=== PATIENT | female | born 1990 | race Caucasian/White ===

== ENCOUNTER → 2017-12-14 | Outpatient (CLI) | payer OTHER ==
--- NOTE | 2017-12-14 16:49 | US ---
EXAMINATION TYPE: US pelvic complete DATE OF EXAM: 12/14/2017 COMPARISON: 11/24/2014 CLINICAL HISTORY: R10.2 Pelvic pain. Cramping x 2 weeks, irregular cycles for the last 2 months, LMP in September, 9, para 1, miscarriage 8. TECHNIQUE: . Transabdominal sonographic images of the pelvis were acquired. Date of LMP: September 2017 EXAM MEASUREMENTS: Uterus: 7.0 x 3.5 x 4.3 cm Endometrial Stripe: 0.7 cm Right Ovary: 3.7 x 2.8 x 2.8 cm Left Ovary: 3.4 x 2.1 x 1.4 cm 1. Uterus: anteverted 2. Endometrium: appears wnl 3. Right Ovary: 2.7 x 2.2 x 1.8cm complex cystic area with internal septations 4. Left Ovary: wnl 5. Bilateral Adnexa: wnl 6. Posterior cul-de-sac: wnl IMPRESSION: Complex right ovarian cyst. Otherwise negative exam. No free fluid. Normal uterus and end ometrium.
== END | disposition home or self-care (01) ==
LOC: RADUSWWP 16:22
PROVIDERS: ATTEND Obstetrics & Gynecology
DX: N83.291 Other ovarian cyst, right side (principal)
CPT/HCPCS: 76856

== ENCOUNTER → 2017-12-14 | Outpatient (CLI) | payer OTHER | END | disposition home or self-care (01) | LOC: LABWHC1 16:45 | PROVIDERS: ATTEND Obstetrics & Gynecology | DX: N92.6 Irregular menstruation, unspecified (principal) | CPT/HCPCS: 36415; 84702 ==

== ENCOUNTER → 2018-03-30 | Outpatient (CLI) | payer OTHER | END | disposition home or self-care (01) | LOC: LABWHC1 12:50 | PROVIDERS: ATTEND Obstetrics & Gynecology | DX: Z34.90 Encounter for supervision of normal pregnancy, unspecified, unspecified trimester (principal) | CPT/HCPCS: 36415; 84702 ==

== ENCOUNTER 2018-06-26 19:07 | Emergency (ER) | payer OTHER ==
[2018-06-26 19:26] VITALS: RESP 18
[2018-06-26] MEDS ORDERED: ACETAMINOPHEN TAB 325 MG TAB PO STA (20:27)
[2018-06-26] MEDS ORDERED: SODIUM CHLORIDE 0.9% 1,000 ML IV STA (20:27)
[2018-06-26 21:31] LABS: Basophils % (A) 0 %; Eosinophils # (A) 0.1 k/uL (0-0.7); Eosinophils % (A) 1 %; HCT 43.2 % (34.0-46.0); HGB 13.8 gm/dL (11.4-16.0); Lymphocytes # (A) 0.9 k/uL (1.0-4.8); Lymphocytes % (A) 17 %; MCH 26.9 pg (25.0-35.0); Mean Platelet Volume 7.7; Monocytes # (A) 0.3 k/uL (0-1.0); Monocytes % (A) 5 %; Neutrophils % (A) 75 %; Platelet Count 225 k/uL (150-450); RBC 5.14 m/uL (3.80-5.40); RDW 13.5 % (11.5-15.5); WBC 5.3 k/uL (3.8-10.6)
[2018-06-26 21:34] LABS: Appearance,Urine Clear (Clear); Bilirubin,Urine Negative (Negative); Blood,Urine Negative (Negative); Color,Urine Yellow; Glucose,Urine (UA) Negative (Negative); Ketones,Urine Trace (Negative); Leukocyte Esterase,Urine Negative (Negative); Nitrite,Urine Negative (Negative); Protein,Urine Trace (Negative); Specific Gravity,Urine 1.037 (1.001-1.035)
[2018-06-26 21:42] LABS: ALT 26 U/L (9-52); AST 24 U/L (14-36); Albumin 4.5 g/dL (3.5-5.0); Alkaline Phosphatase 50 U/L (38-126); Amylase 48 U/L (30-110); Anion Gap 11 mmol/L; Blood Urea Nitrogen 11 mg/dL (7-17); Calcium 9.7 mg/dL (8.4-10.2); Carbon Dioxide 21 mmol/L (22-30); Chloride 104 mmol/L (98-107); Glucose 76 mg/dL (74-99); Lipase 88 U/L (23-300); Potassium 3.8 mmol/L (3.5-5.1); Sodium 136 mmol/L (137-145); Total Bilirubin 0.4 mg/dL (0.2-1.3); Total Protein 7.1 g/dL (6.3-8.2)
--- NOTE | 2018-06-26 21:54 | US ---
EXAMINATION TYPE: Transabdominal DATE OF EXAM: 06/26/2018 9:38 PM COMPARISON: NONE CLINICAL HISTORY: Pain. Pain EXAM PERFORMED: Transvaginal (TV) and Transabdominal (TA) EXAM MEASUREMENTS: GESTATIONAL AGE / DATING Physician Established: Not yet established Dates by LMP: (8 weeks/3 days) EDC: 02/02/2019 Dates by First Scan: No previous this is first scan Dates by Current Scan for: (7 weeks/6 days) EDC: 02/06/2019 MATERNAL ANATOMY Uterus: 10.3 x 4.8 x 3.9cm Right Ovary: 3.9 x 2.1 x 1.4 cm Left Ovary: 3.9 x 2.1 x 2.4 cm Post CDS / Adnexa: wnl Presence of free fluid: no Presence of corpus luteal cyst: yes left ovary 1.4 x 1.2 x .9cm Presence of subchorionic bleed: no GESTATION / SURVEY CRL: 1.52cm ( 7 weeks/6 days) Yolk Sac (normal less than 6mm): 3mm Heart Rate: 172 bpm Rhythm: Normal IUP: Viable IUP Beta HcG (if available): Not available at this time IMPRESSION: Single viable intrauterine corresponding sonographically to 7 weeks 6 days gestation with E DC 02/06/2019.
--- NOTE | 2018-06-26 21:57 | ED ---
General Adult HPI - General Chief complaint: Abdominal Pain Stated complaint: early /abdominal pain Time Seen by Provider: 06/26/18 20:08 Source: patient, RN notes reviewed Mode of arrival: ambulatory - History of Present Illness Initial comments: 27-year-old female presents to the emergency department for a chief complaint of abdominal pain. Patient states that a few days ago she started to have some cramping pelvic pain. Sates that yesterday and today she started to have bilateral sharp cramping pain pain that radiates into the vaginal area. States it is worse on the right side. States it comes and goes. Patient states last menstrual period was 04/28/2018 which is about 8 weeks. Patient denies any vaginal bleeding. Patient denies any fevers or chills. Denies any dysuria. She does admit to associated nausea but denies vomiting. Patient has no other complaints at this time including shortness of breath, chest pain, vomiting, headache, or visual changes. - Related Data Home Medications Medication Instructions Recorded Confirmed No Known Home Medications 06/26/18 06/26/18 Allergies Allergy/AdvReac Type Severity Reaction Status Date / Time No Known Allergies Allergy Verified 06/26/18 20:12 Review of Systems ROS Statement: Those systems with pertinent positive or pertinent negative responses have been documented in the HPI. ROS Other: All systems not noted in ROS Statement are negative. Past Medical History Past Medical History: No Reported History History of Any Multi-Drug Resistant Organisms: None Reported Past Surgical History: No Surgical Hx Reported Past Anesthesia/Blood Transfusion Reactions: No Reported Reaction Past Psychological History: No Psychological Hx Reported Smoking Status: Current some day smoker Past Alcohol Use History: None Reported Past Drug Use History: None Reported General Exam General appearance: alert, in no apparent distress Head exam: Present: atraumatic, normocephalic, normal inspection Eye exam: Present: normal appearance, PERRL, EOMI. Absent: scleral icterus, conjunctival injection, periorbital swelling ENT exam: Present: normal exam, mucous membranes moist Neck exam: Present: normal inspection, full ROM. Absent: tenderness, meningismus, lymphadenopathy Respiratory exam: Present: normal lung sounds bilaterally. Absent: respiratory distress, wheezes, rales, rhonchi, stridor Cardiovascular Exam: Present: regular rate, normal rhythm, normal heart sounds. Absent: systolic murmur, diastolic murmur, rubs, gallop, clicks GI/Abdominal exam: Present: soft. Absent: distended, tenderness (RLQ tenderness), guarding, rebound, rigid External exam: Present: normal external exam Speculum exam: Present: normal speculum exam. Absent: erythema, vaginal discharge, cervical discharge, vaginal bleeding, foreign body By manual exam: Present: adnexal tenderness (R adnexal tenderness). Absent: normal by manual exam, cervical motion tenderness, adnexal mass, uterine enlargement, uterine tenderness Neurological exam: Present: alert, oriented X3, CN II-XII intact Psychiatric exam: Present: normal affect, normal mood Course Vital Signs 06/26/18 19:22 Temperature 97.9 F Pulse Rate 81 Respiratory 18 Rate Blood Pressure 105/64 O2 Sat by Pulse 99 Oximetry Medical Decision Making - Medical Decision Making 27-year-old female since to the emergency department for a chief complaint of abdominal pain. States she started have pelvic cramping a few weeks ago and it did become right-sided. Patient states that it is worse on the right side. Denies fevers or chills. States her last menstrual period was about 8 weeks ago. On exam patient is tenderness noted in the right and left lower quadrant. Pelvic exam did reveal right adnexal tenderness. CBC CMP is unremarkable. White blood cell count is 5. Ultrasound shows a single viable intrauterine corresponding to 7 weeks 6 days. Patient was given Tylenol for her pain. On reevaluation patient is feeling much better. She is comfortably sitting up. Tenderness has decreased significantly. Patient feeling ready to go home. At this time I believe pain was likely secondary to cramping however no vaginal bleeding. Patient will follow up with [facility] in one to 2 days. She will return here if she has any worsening symptoms or fevers. - Lab Data Result diagrams: 06/26/18 21:00 06/26/18 21:00 Lab Results 06/26/18 06/26/18 06/26/18 Range/Units 18:40 18:41 18:41 WBC (3.8-10.6) k/uL RBC (3.80-5.40) m/uL Hgb (11.4-16.0) gm/dL Hct (34.0-46.0) % MCV (80.0-100.0) fL MCH (25.0-35.0) pg MCHC (31.0-37.0) g/dL RDW (11.5-15.5) % Plt Count (150-450) k/uL Neutrophils % % Lymphocytes % % Monocytes % % Eosinophils % % Basophils % % Neutrophils # (1.3-7.7) k/uL Lymphocytes # (1.0-4.8) k/uL Monocytes # (0-1.0) k/uL Eosinophils # (0-0.7) k/uL Basophils # (0-0.2) k/uL Sodium (137-145) mmol/L Potassium (3.5-5.1) mmol/L Chloride (98-107) mmol/L Carbon Dioxide (22-30) mmol/L Anion Gap mmol/L BUN (7-17) mg/dL Creatinine (0.52-1.04) mg/dL Est GFR (CKD-EPI)AfAm (>60 ml/min/1.73 sqM) Est GFR (CKD-EPI)NonAf (>60 ml/min/1.73 sqM) Glucose (74-99) mg/dL Calcium (8.4-10.2) mg/dL Total Bilirubin (0.2-1.3) mg/dL AST (14-36) U/L ALT (9-52) U/L Alkaline Phosphatase (38-126) U/L Total Protein (6.3-8.2) g/dL Albumin (3.5-5.0) g/dL Amylase (30-110) U/L Lipase (23-300) U/L Urine Color Yellow Urine Appearance Clear (Clear) Urine pH 6.0 (5.0-8.0) Ur Specific Compton 1.037 H (1.001-1.035) Urine Protein Trace H (Negative) Urine Glucose (UA) Negative (Negative) Urine Ketones Trace H (Negative) Urine Blood Negative (Negative) Urine Nitrite Negative (Negative) Urine Bilirubin Negative (Negative) Urine Urobilinogen 2.0 (<2.0) mg/dL Ur Leukocyte Esterase Negative (Negative) Urine HCG, Qual Detected (Not Detectd) Trichomonas Ag (Rapid) Negative (Negative) Blood Type Blood Type Recheck 06/26/18 06/26/18 06/26/18 Range/Units 21:00 21:00 21:00 WBC 5.3 (3.8-10.6) k/uL RBC 5.14 (3.80-5.40) m/uL Hgb 13.8 (11.4-16.0) gm/dL Hct 43.2 (34.0-46.0) % MCV 84.0 (80.0-100.0) fL MCH 26.9 (25.0-35.0) pg MCHC 32.0 (31.0-37.0) g/dL RDW 13.5 (11.5-15.5) % Plt Count 225 (150-450) k/uL Neutrophils % 75 % Lymphocytes % 17 % Monocytes % 5 % Eosinophils % 1 % Basophils % 0 % Neutrophils # 4.0 (1.3-7.7) k/uL Lymphocytes # 0.9 L (1.0-4.8) k/uL Monocytes # 0.3 (0-1.0) k/uL Eosinophils # 0.1 (0-0.7) k/uL Basophils # 0.0 (0-0.2) k/uL Sodium 136 L (137-145) mmol/L Potassium 3.8 (3.5-5.1) mmol/L Chloride 104 (98-107) mmol/L Carbon Dioxide 21 L (22-30) mmol/L Anion Gap 11 mmol/L BUN 11 (7-17) mg/dL Creatinine 0.41 L (0.52-1.04) mg/dL Est GFR (CKD-EPI)AfAm >90 (>60 ml/min/1.73 sqM) Est GFR (CKD-EPI)NonAf >90 (>60 ml/min/1.73 sqM) Glucose 76 (74-99) mg/dL Calcium 9.7 (8.4-10.2) mg/dL Total Bilirubin 0.4 (0.2-1.3) mg/dL AST 24 (14-36) U/L ALT 26 (9-52) U/L Alkaline Phosphatase 50 (38-126) U/L Total Protein 7.1 (6.3-8.2) g/dL Albumin 4.5 (3.5-5.0) g/dL Amylase 48 (30-110) U/L Lipase 88 (23-300) U/L Urine Color Urine Appearance (Clear) Urine pH (5.0-8.0) Ur Specific Compton (1.001-1.035) Urine Protein (Negative) Urine Glucose (UA) (Negative) Urine Ketones (Negative) Urine Blood (Negative) Urine Nitrite (Negative) Urine Bilirubin (Negative) Urine Urobilinogen (<2.0) mg/dL Ur Leukocyte Esterase (Negative) Urine HCG, Qual (Not Detectd) Trichomonas Ag (Rapid) (Negative) Blood Type B Positive Blood Type Recheck No Disposition Clinical Impression: Intrauterine Disposition: HOME SELF-CARE Condition: Good Instructions (If sedation given, give patient instructions): Abdominal Pain in (ED) Additional Instructions: Please take Tylenol for pain. If symptoms are worsening or you develop fevers return immediately to the emergency department. Otherwise follow-up with your [facility] Dr. Hodge in one to 2 days. Is patient prescribed a controlled substance at d/c from ED?: No Referrals: Tara Hodge DO [Doctor of Osteopathic Medicine] - 1-2 days Porsha Gifford MD [STAFF PHYSICIAN] - 1-2 days Time of Disposition: 22:42
[2018-06-26 23:27] VITALS: BP 102/78; PULSE 97; TEMP 98.1
[2018-06-28 13:27] LABS: C. trachomatis,PCR Negative (Neg,Equiv); Chlamydia trachomatis Source Vagina
[2018-06-28 14:18] LABS: N. gonorrhoeae,PCR Negative (Neg,Equiv); Neisseria Source Vagina
== END 2018-06-26 22:51 | disposition home or self-care (01) ==
LOC: EC 19:07
DX: O26.891 Other specified pregnancy related conditions, first trimester (principal); R10.31 Right lower quadrant pain; O99.331 Smoking (tobacco) complicating pregnancy, first trimester; F17.200 Nicotine dependence, unspecified, uncomplicated; Z3A.01 Less than 8 weeks gestation of pregnancy
CPT/HCPCS: 36415; 76801; 76817; 80053; 81003; 81025; 82150; 83690; 84702; 85025; 86900; 86901; 87491; 87591; 87808; 96360; 99284

== ENCOUNTER → 2018-07-19 | Outpatient (CLI) | payer OTHER ==
--- NOTE | 2018-07-19 14:34 | US ---
EXAMINATION TYPE: Transabdominal DATE OF EXAM: 07/19/2018 1:30 PM COMPARISON: 06/26/2018 CLINICAL HISTORY: CONFIRM DATES. EXAM PERFORMED: Transabdominal (TA) EXAM MEASUREMENTS: GESTATIONAL AGE / DATING Physician Established: Not yet established Dates by LMP: (7 weeks/2 days) EDC: 03/05/18 Dates by First Scan: (11 weeks/1 days) EDC: 02/06/19 Dates by Current Scan for: (11 weeks/1 days) EDC: 02/06/2019 MATERNAL ANATOMY Uterus: 13 x 6.4 x 7.8cm Right Ovary: 2.8 x 2.4 x 2.5 cm Left Ovary: 3.1 x 2.0 x 2.0 cm Post CDS / Adnexa: wnl Presence of free fluid: no Presence of corpus luteal cyst: no Presence of subchorionic bleed:no GESTATION / SURVEY CRL: 4.4 (11 weeks/1 days) Yolk Sac (normal less than 6mm): 4mm Heart Rate: 171 bpm Rhythm: Normal IUP: Live IUP Date of LMP: 05/29/18 Beta HcG (if available): Not available at this time IMPRESSION: Single live intrauterine with a sonographic age of 11 weeks and 1 day, concordant with the initial ultrasound of 06/26/2018 provided dates. This is discordant with the dates by last menstrual p eriod.
== END ==
LOC: RADUSWWP 13:05
PROVIDERS: ATTEND Obstetrics & Gynecology
DX: Z36.89 Encounter for other specified antenatal screening (principal); Z3A.11 11 weeks gestation of pregnancy
CPT/HCPCS: 76801

== ENCOUNTER 2018-11-19 21:53 | Outpatient (CLI) | payer OTHER ==
[2018-11-19 22:41] VITALS: BP 137/67; PULSE 85; RESP 16; TEMP 96.4
--- NOTE | 2018-11-22 10:41 | P.MSEPDOC ---
Presenting Problems - Arrival Data Date of Arrival on Unit: 11/19/18 Time of Arrival on Unit: 21:53 Mode of Transport: Wheelchair - Complaint OB-Reason for Admission/Chief Complaint: Rule Out PROM Medical History - Information : 10 Para: 1 Term: 1 : 0 Abortions: Spontaneous or Elective: 8 Number of Living Children: 1 - Gestational Age Gestational Age by SOSA (wks/days): 29 Weeks and 2 Days Review of Systems - Review of Systems Constitutional: No problems Breast: No problems ENT: No problems Cardiovascular: No problems Respiratory: No problems Gastrointestinal: No problems Genitourinary: No problems Musculoskeletal: No problems Neurological: No problems Skin: No problems Vital Signs - Temperature Temperature: 96.4 F Temperature Source: Temporal Artery Scan - Pulse Right Pulse Rate: 85 Pulse Assessment Method: Automatic Cuff - Respirations Respiratory Rate: 16 Oxygen Delivery Method: Room Air O2 Sat by Pulse Oximetry: 99 - Blood Pressure Right Arm Blood Pressure: 137/67 Blood Pressure Mean: 90 Blood Pressure Source: Automatic Cuff Medical Screen Scoring (Pre) - Cervical Exam Dilation: Exam Deferred Effacement: Exam Deferred Membranes: Intact - Uterine Contractions Frequency: N/A Duration: N/A Intensity: N/A - Maternal Vital Signs Maternal Temperature: N/A Maternal Blood Pressure: N/A Signs of Preeclampsia: N/A Maternal Respirations: N/A - Maternal Trauma Maternal Trauma: N/A - Assessment - Baby A Baseline FHR: 145 Heart Rate - NICHD Category: Category I (Normal) = 0 NST: Reactive Position: N/A Station: N/A - Total Score - Baby A Total Score - Baby A: 0 - Total Score - Baby B Total Score - Baby B: 0 - Total Score - Baby C Total Score - Baby C: 0 - Level of Risk - Baby A Level of Risk - Baby A: Low (0-5) - Level of Risk - Baby B Level of Risk - Baby B: Low (0-5) - Level of Risk - Baby C Level of Risk - Baby C: Low (0-5) Physician Notification (Pre) - Physician Notified Physician Notified Date: 11/19/18 Physician Notified Time: 22:23 Physician/Practitioner Notifed:: Dr. Doss Spoke With: Dr. Doss New Order Received: Yes - Notification Comment Comment: Dr. Doss called and given report on pt. Pt c/o. VS wnl. Reactive NST. Negative amnisure. Orders recieved to d/c pt to home. Disposition - Disposition OB Disposition: Discharge to home Discharge Date: 11/19/18 Discharge Time: 22:30 I agree with the RN Medical Screening Exam: Yes Risk & Benefit of care provided described in d/c instruction: Yes Diagnosis: FALSE LABOR BEFORE 37 COMPLETED WEEKS OF GEST, THIRD TRI
== END 2018-11-19 22:30 | disposition home or self-care (01) ==
LOC: FBPOP 21:53
PROVIDERS: ATTEND Obstetrics & Gynecology
DX: O47.03 False labor before 37 completed weeks of gestation, third trimester (principal); Z3A.29 29 weeks gestation of pregnancy
CPT/HCPCS: 59025; G0463; 99213

== ENCOUNTER 2018-12-19 21:25 | Observation (INO) | payer OTHER ==
[2018-12-19 22:12] LABS: Amorphous Sediment,Urine Rare /hpf; Appearance,Urine Turbid (Clear); Bilirubin,Urine Negative (Negative); Blood,Urine Negative (Negative); Color,Urine Yellow; Glucose,Urine (UA) Negative (Negative); Ketones,Urine Negative (Negative); Leukocyte Esterase,Urine Negative (Negative); Mucus,Urine Rare /hpf; Nitrite,Urine Negative (Negative); PH, Urine 7.5 (5.0-8.0); Protein,Urine Negative (Negative); Specific Gravity,Urine 1.017 (1.001-1.035); Squamous Epithelial Cell,Urine 1 /hpf (0-4); WBC,Urine 4 /hpf (0-5)
[2018-12-19] MEDS ORDERED: LACTATED RINGERS 1,000 ML IV SCH (23:00)
[2018-12-19] MEDS: BETAMET ACET-BETAMETH SOD PHOS 6 MG/ML VIAL IM SCH (23:43)
[2018-12-19 23:49] VITALS: BMI 30.7
[2018-12-19] MEDS: LACTATED RINGERS 1,000 ML IV SCH (23:51)
[2018-12-20 08:03] VITALS: RESP 18; TEMP 96.7
[2018-12-20] MEDS: LACTATED RINGERS 1,000 ML IV SCH ×2 (09:30→21:14)
--- NOTE | 2018-12-20 11:36 | P.HPOB ---
History of Present Illness H&P Date: 12/20/18 Chief Complaint: pressure 28 year old presented to [facility] at 33 weeks and 5 days complaining of pressure. heart tones are 1:30 with moderate variability and reactive. She is not hudson on the monitor. fibronectin was sent and positive and her cervix is 1-2 cm dilated. She was admitted by Dr. Doss for observation and Celestone injections. She received her first dose of Celestone at 2300. Review of Systems All systems: negative Constitutional: Denies chills, Denies fever Eyes: denies blurred vision, denies pain Ears, nose, mouth and throat: Denies headache, Denies sore throat Cardiovascular: Denies chest pain, Denies shortness of breath Respiratory: Denies cough Gastrointestinal: Denies abdominal pain, Denies diarrhea, Denies nausea, Denies vomiting Genitourinary: Denies dysuria, Denies hematuria Musculoskeletal: Denies myalgias Integumentary: Denies pruritus, Denies rash Neurological: Denies numbness, Denies weakness Psychiatric: Denies anxiety, Denies depression Endocrine: Denies fatigue, Denies weight change Past Medical History Past Medical History: No Reported History Additional Past Medical History / Comment(s): Obstetric history: She has had one termination, 6 spontaneous abortions, and one vaginal delivery. This is her ninth . History of Any Multi-Drug Resistant Organisms: None Reported Past Surgical History: No Surgical Hx Reported Past Anesthesia/Blood Transfusion Reactions: No Reported Reaction Past Psychological History: No Psychological Hx Reported Smoking Status: Former smoker Past Alcohol Use History: None Reported Past Drug Use History: None Reported - Past Family History Mother Family Medical History: No Reported History Medications and Allergies Home Medications Medication Instructions Recorded Confirmed Type Pnv No.95/Ferrous Fum/Folic AC 1 tab PO DAILY 11/19/18 12/19/18 History [ Multivitamin Tablet] Allergies Allergy/AdvReac Type Severity Reaction Status Date / Time No Known Allergies Allergy Verified 12/19/18 21:31 Exam Osteopathic Statement: *. No significant issues noted on an osteopathic structural exam other than those noted in the History and Physical/Consult. Vital Signs Temp Pulse Resp BP Pulse Ox 12/20/18 07:15 96.7 F L 76 18 129/62 99 12/20/18 04:00 97.9 F 71 16 97/50 12/19/18 23:44 97.9 F 63 16 112/54 12/19/18 21:52 97.3 F L 80 16 138/62 99 Intake and Output 12/19/18 12/20/18 12/20/18 22:59 06:59 14:59 Other: # Voids 1 Weight 76.204 kg Heart: Regular rate and rhythm Lungs: Clear to auscultation bilaterally Abdomen: Soft, nontender Extremities: Negative Homans sign Results Abnormal Lab Results - Last 24 Hours (Table) 12/19/18 Range/Units 21:57 Urine Appearance Turbid H (Clear) Amorphous Sediment Rare H (None) /hpf Urine Mucus Rare H (None) /hpf Assessment and Plan (1) Positive fibronectin at 22 weeks to 34 weeks gestation Current Visit: Yes Status: Acute Code(s): O09.899 - SUPERVISION OF OTHER HIGH RISK PREGNANCIES, UNSP TRIMESTER; R87.89 - OTH ABNORMAL FINDINGS IN SPECMN FROM FEMALE GENITAL ORGANS SNOMED Code(s): 955691583 Plan: 1. Continue to monitor 2. Her second dose of Celestone OB at 11 PM tonight 3. She will be discharged home tomorrow morning if there is no cervical change and she does not start to contract.
[2018-12-20] MEDS ORDERED: ACETAMINOPHEN TAB 325 MG TAB PO PRN (15:48)
[2018-12-20 16:06] VITALS: BP 118/65; PULSE 74
[2018-12-20] MEDS: BETAMET ACET-BETAMETH SOD PHOS 6 MG/ML VIAL IM SCH (23:19)
--- NOTE | 2018-12-21 06:27 | P.DS ---
Providers Date of admission: 12/19/18 23:19 Expected date of discharge: 12/21/18 Attending physician: Tara Hodge Primary care physician: Stated None - Discharge Diagnosis(es) (1) Positive fibronectin at 22 weeks to 34 weeks gestation Current Visit: Yes Status: Acute Hospital Course: Patient presented at 33 weeks and 5 days with positive fibronectin dilated 1-2 cm, 70% effaced, and -2 station. She is not hudson initially. She was admitted for observation and did have several times earlier she have a retinal contractions urine there. Her pain never got above of 4 on the pain scale. Her cervix did not make any change. She did receive 2 doses of Celestone. She'll be discharged home this morning to follow-up with me in one week. She is on pelvic rest and limited work hours. Plan - Discharge Summary New Discharge Prescriptions: No Action Pnv No.95/Ferrous Fum/Folic AC [ Multivitamin Tablet] 1 tab PO DAILY Discharge Medication List Pnv No.95/Ferrous Fum/Folic AC [ Multivitamin Tablet] 1 tab PO DAILY 11/19/18 [History] Follow up Appointment(s)/Referral(s): Tara Hodge DO [Doctor of Osteopathic Medicine] - 12/28/18 Discharge Disposition: HOME SELF-CARE
== END 2018-12-21 07:20 | disposition home or self-care (01) ==
LOC: FBPOP 21:25 → UNDOADMOB 23:19 → 4FBP 23:19 → UNDODISOB 12-21 07:20
PROVIDERS: ADMIT Obstetrics & Gynecology; ATTEND Obstetrics & Gynecology
DX: O26.23 Pregnancy care for patient with recurrent pregnancy loss, third trimester (principal); O26.893 Other specified pregnancy related conditions, third trimester; Z87.891 Personal history of nicotine dependence; Z3A.33 33 weeks gestation of pregnancy
CPT/HCPCS: 59025; 81001; 82731; 96360; 96361; 96365; 96372; 99213; 99214

== ENCOUNTER 2019-01-19 16:28 | Inpatient (IN) | payer OTHER ==
[2019-01-19 17:07] LABS: Appearance,Urine Clear (Clear); Bilirubin,Urine Negative (Negative); Blood,Urine Negative (Negative); Color,Urine Yellow; Glucose,Urine (UA) Negative (Negative); Ketones,Urine Negative (Negative); Leukocyte Esterase,Urine Negative (Negative); Nitrite,Urine Negative (Negative); Protein,Urine Negative (Negative); Specific Gravity,Urine 1.014 (1.001-1.035); Urobilinogen,Urine <2.0 mg/dL (<2.0)
[2019-01-19] MEDS ORDERED: METHYLERGONOVINE 0.2 MG/ML 1 ML AMP IM PRN (19:11)
[2019-01-19] MEDS ORDERED: OXYTOCIN 10 UNIT/ML 1 ML VIAL IM PRN (19:11)
[2019-01-19] MEDS ORDERED: CARBOPROST TROMETHAMINE 250 MCG/ML 1 ML AMP IM PRN (19:11)
[2019-01-19] MEDS ORDERED: LIDOCAINE 0.5% (PF) 5 MG/ML (50 ML SDV) SQ PRN (19:11)
[2019-01-19] MEDS ORDERED: AMPICILLIN 2,000 MG in SODIUM CHLORIDE 0.9% 100 ML IVPB STA (19:11)
[2019-01-19] MEDS ORDERED: TERBUTALINE 1 MG/ML VIAL SQ PRN (19:11)
[2019-01-19] MEDS ORDERED: OXYTOCIN 30 UNITS/500 ML NS 30 UNIT in SALINE 1 500ML.BAG IV SCH (19:15)
[2019-01-19] MEDS: LACTATED RINGERS 1,000 ML IV SCH (19:20)
[2019-01-19 20:20] VITALS: BMI 33.3
[2019-01-19 21:00] LABS: Basophils # (A) 0.1 k/uL (0-0.2); Basophils % (A) 1 %; Eosinophils # (A) 0.1 k/uL (0-0.7); Eosinophils % (A) 1 %; HGB 11.5 gm/dL (11.4-16.0); Lymphocytes # (A) 2.3 k/uL (1.0-4.8); Lymphocytes % (A) 24 %; MCH 27.3 pg (25.0-35.0); MCHC 33.6 g/dL (31.0-37.0); MCV 81.1 fL (80.0-100.0); Mean Platelet Volume 8.4; Monocytes # (A) 0.4 k/uL (0-1.0); Monocytes % (A) 4 %; Neutrophils # (A) 6.6 k/uL (1.3-7.7); Neutrophils % (A) 69 %; Platelet Count 194 k/uL (150-450); RDW 13.3 % (11.5-15.5); WBC 9.5 k/uL (3.8-10.6)
[2019-01-20] MEDS: AMPICILLIN 1,000 MG in SODIUM CHLORIDE 0.9% 50 ML IVPB SCH ×2 (00:21→20:31)
[2019-01-20] MEDS ORDERED: BENZOCAINE/MENTHOL SPRAY 1 GM/SPRAY AEROSOL TOPICAL PRN (04:28)
[2019-01-20] MEDS ORDERED: ZOLPIDEM 5 MG TAB PO PRN (04:28)
[2019-01-20] MEDS ORDERED: SIMETHICONE 80 MG CHEWABLE PO PRN (04:28)
[2019-01-20] MEDS ORDERED: HYDROCORTISONE 2.5% RECTAL CREAM 30 GM TUBE RECTAL PRN (04:28)
[2019-01-20] MEDS ORDERED: MEASLES-MUMPS-RUBELLA VACC/PF 12,500 UNIT/0.5 ML VIAL SQ ONE (04:28)
[2019-01-20] MEDS ORDERED: WITCH HAZEL 1 EACH MED..PAD TOPICAL PRN (04:28)
[2019-01-20] MEDS ORDERED: diphenhydrAMINE 25 MG CAP PO PRN (04:28)
[2019-01-20] MEDS ORDERED: diphenhydrAMINE 50 MG/ML 1 ML VIAL IVP PRN ×2 (04:28)
[2019-01-20] MEDS ORDERED: LANOLIN CREAM 5 GM TUBE TOPICAL PRN (04:28)
[2019-01-20] MEDS ORDERED: HYDROcodone/APAP 5-325MG 1 EACH TAB PO PRN (04:28)
[2019-01-20] MEDS ORDERED: diphenhydrAMINE 50 MG CAP PO PRN (04:28)
[2019-01-20] MEDS ORDERED: OXYTOCIN 20 UNITS/1000 ML NS 1,000 ML IV SCH (04:30)
--- NOTE | 2019-01-20 04:31 | P.HPOB ---
History of Present Illness H&P Date: 01/20/19 Chief Complaint: Intrauterine at term: Active labor Sue is a 28 she'll G 10 P1 at 38 weeks gestation who ryes in active labor. She is making cervical change. She is admitted for same. Her course she relates as unremarkable and she is feeling well at this time. She is having contractions approximately 4-5 minutes for preoperative record is not in the chart but she denies any issues with her medical history either. She reports the contractions began earlier in the afternoon and they were stronger bring labor and delivery. Initially she was 3 to half centimeters and then approximately 2 hours later she was 5 cm. She plans to use epidural for analgesia. No other issues at this time. Category 1 tracing is noted. Artificial rupture membranes was performed clear fluid noted. At that time she was dilated to 6 cm 70% effaced and -2 station Past Medical History Past Medical History: No Reported History Additional Past Medical History / Comment(s): Obstetric history: She has had one termination, 6 spontaneous abortions, and one vaginal delivery. This is her ninth . History of Any Multi-Drug Resistant Organisms: None Reported Past Surgical History: No Surgical Hx Reported Past Anesthesia/Blood Transfusion Reactions: No Reported Reaction Past Psychological History: No Psychological Hx Reported Smoking Status: Never smoker Past Alcohol Use History: None Reported Past Drug Use History: None Reported - Past Family History Mother Family Medical History: No Reported History Medications and Allergies Home Medications Medication Instructions Recorded Confirmed Type Pnv No.95/Ferrous Fum/Folic AC 1 tab PO DAILY 11/19/18 12/19/18 History [ Multivitamin Tablet] Allergies Allergy/AdvReac Type Severity Reaction Status Date / Time No Known Allergies Allergy Verified 12/19/18 21:31 Exam Osteopathic Statement: *. No significant issues noted on an osteopathic structural exam other than those noted in the History and Physical/Consult. Vital Signs Temp Pulse Resp BP Pulse Ox 01/19/19 19:10 97.3 F L 80 18 120/63 98 01/19/19 17:18 97.0 F L 76 18 103/62 97 Intake and Output 01/19/19 01/19/19 01/20/19 14:59 22:59 06:59 Other: # Voids 1 Weight 82.554 kg - OBG Physical Exam Breast: both: normal (no masses) Abdomen: bowel sounds normal, no diffuse tenderness, no bruit present, no guarding noted, no hepatomegaly, no splenomegaly, no mass Vulva: both: normal Vagina: normal moisture, no discharge Cervix: no lesion, no discharge Uterus: normal size, normal contour Adnexa: both: normal Anus/Rectum: normal perianal skin, no rectal mass, no hemorrhoids, heme negative Results Result Diagrams: 01/19/19 20:44
--- NOTE | 2019-01-20 04:34 | P.PROBDLV ---
Vaginal Delivery Note - . Vaginal Delivery Note: Sue progressed to complete and pushing with spontaneous vaginal delivery of a viable female over an intact perineum. Following delivery of the head from left occiput anterior position a nuchal cord 1 was noted and and with my fingers looped under the umbilical cord due to her continued to push we are able to remove the umbilical cord around the shoulders and deliver the shoulders with gentle downward upper traction and then the baby was delivered through the umbilical cord. Mouth and nares were then bulb suctioned and baby was placed on mother's abdomen where the umbilical cord was then clamped and cut in usual fashion following 30 seconds of station. Nursery personnel was present and assumed care. Placenta was then delivered intact and Pitocin was added to the IV. A right periurethral laceration was noted and was repaired with 3-0 Vicryl following 1% Xylocaine for analgesia. scores were 9 and 9 at one and 5 minutes respectively and the weight was 6 lbs. 4 oz. Both mother and baby are stable following delivery.
[2019-01-20] MEDS: LACTATED RINGERS 1,000 ML IV SCH (05:12)
[2019-01-20] MEDS: IBUPROFEN 600 MG TAB PO PRN ×2 (06:03→15:42)
[2019-01-20] MEDS: SENNOSIDES-DOCUSATE SODIUM 1 EACH TAB PO SCH ×2 (08:04→20:03)
[2019-01-20] MEDS ORDERED: ROPIVACAINE 100 MG, fentaNYL (PF) 200 MCG in SODIUM CHLORIDE 0.9% 76 ML EPIDURAL ONE (15:50)
[2019-01-20] MEDS: ACETAMINOPHEN TAB 325 MG TAB PO PRN (20:03)
[2019-01-21 00:10] VITALS: RESP 16
[2019-01-21] MEDS: SENNOSIDES-DOCUSATE SODIUM 1 EACH TAB PO SCH (07:21)
[2019-01-21] MEDS: IBUPROFEN 600 MG TAB PO PRN (07:21)
[2019-01-21 08:11] VITALS: BP 101/61; PULSE 56; TEMP 98.3
--- NOTE | 2019-01-21 09:06 | P.DS ---
Providers Date of admission: 01/19/19 19:08 Expected date of discharge: 01/21/19 Attending physician: Tara Hodge Primary care physician: Stated None - Discharge Diagnosis(es) (1) Vaginal delivery Current Visit: No Status: Acute Hospital Course: Patient presented in active labor. She underwent a normal vaginal delivery. Her course was uncomplicated. She'll be discharged home day #1 in stable condition to follow-up with me in 6 weeks. Plan - Discharge Summary Discharge Rx Participant: No New Discharge Prescriptions: No Action Pnv No.95/Ferrous Fum/Folic AC [ Multivitamin Tablet] 1 tab PO DAILY Discharge Medication List Pnv No.95/Ferrous Fum/Folic AC [ Multivitamin Tablet] 1 tab PO DAILY 11/19/18 [History]
[2019-01-21] MEDS: ACETAMINOPHEN TAB 325 MG TAB PO PRN (10:22)
== END 2019-01-21 10:50 | disposition home or self-care (01) | DRG 807 ==
LOC: FBPOP 16:28 → 4FBP 19:08
PROVIDERS: ADMIT Obstetrics & Gynecology; ATTEND Obstetrics & Gynecology
PROC: 10E0XZZ Delivery of Products of Conception, External Approach (ICD-10-PCS; principal; 2019-01-19)
PROC: 0UQMXZZ Repair Vulva, External Approach (ICD-10-PCS; 2019-01-19)
PROC: 00HU33Z Insertion of Infusion Device into Spinal Canal, Percutaneous Approach (ICD-10-PCS; 2019-01-19)
PROC: 3E0R3BZ Introduction of Anesthetic Agent into Spinal Canal, Percutaneous Approach (ICD-10-PCS; 2019-01-19)
PROC: 3E0134Z Introduction of Serum, Toxoid and Vaccine into Subcutaneous Tissue, Percutaneous Approach (ICD-10-PCS; 2019-01-20)
DX: O69.81X0 Labor and delivery complicated by cord around neck, without compression, not applicable or unspecified (principal); Z37.0 Single live birth; O71.82 Other specified trauma to perineum and vulva; Z3A.38 38 weeks gestation of pregnancy; Z79.899 Other long term (current) drug therapy; Z23 Encounter for immunization
CPT/HCPCS: 59025; 81003; 85025; 86850; 86900; 86901; 99203; 99213

== ENCOUNTER → 2019-12-09 | Outpatient (CLI) | payer OTHER | END | disposition home or self-care (01) | LOC: LABWHC1 10:47 | PROVIDERS: ATTEND Obstetrics & Gynecology | DX: N91.2 Amenorrhea, unspecified (principal) | CPT/HCPCS: 36415; 84702 ==

== ENCOUNTER 2020-04-06 01:13 | Observation (INO) | payer OTHER ==
[2020-04-06] MEDS ORDERED: HYDROmorphone 0.5 MG/0.5 ML SYRINGE IVP STA ×3 (01:25→06:13)
[2020-04-06] MEDS ORDERED: SODIUM CHLORIDE 0.9% 500 ML 500 ML IV STA ×2 (01:25→03:20)
--- NOTE | 2020-04-06 01:31 | ED ---
Chest Pain HPI - General Source: patient Mode of arrival: wheelchair Limitations: no limitations - History of Present Illness MD Complaint: chest pain -: hour(s) Onset: after eating Pain Location: epigastric Pain Radiation: back Quality: aching Consistency: constant Improves With: other (Vomiting) Worsens With: nothing Anginal Symptoms: nausea, vomiting Treatments Prior to Arrival: none <Salomón Valdivia - Last Filed: 04/06/20 06:54> <Jeffrey Aguust - Last Filed: 04/06/20 10:13> - General Chief Complaint: Chest Pain Stated Complaint: Chest and back pain Time Seen by Provider: 04/06/20 01:20 - History of Present Illness Initial Comments: This patient is a 29-year-old woman presenting with complaint of epigastric pain that radiates to her back. It had come on a number of hours ago while she was at rest. Patient reports that prior to that she had eaten pizza and had a beer to drink. The patient states she has had similar pains to this for 5 times in the past but never this severe. She states the pain does radiate to the back. It is worse if she presses on it or with deep breath. She has had nausea and vomiting associated. (Salomón Valdivia) - Related Data Home Medications Medication Instructions Recorded Confirmed medroxyPROGESTERone [Depo-Provera] 150 mg IM Q90D 04/06/20 04/06/20 Allergies Allergy/AdvReac Type Severity Reaction Status Date / Time No Known Allergies Allergy Verified 04/06/20 06:45 Review of Systems ROS Other: All systems not noted in ROS Statement are negative. Constitutional: Denies: fever, chills Respiratory: Denies: cough, dyspnea Cardiovascular: Reports: chest pain. Denies: palpitations, orthopnea, edema, syncope Gastrointestinal: Reports: abdominal pain, nausea, vomiting. Denies: diarrhea, constipation, melena, hematochezia Genitourinary: Denies: dysuria, frequency, hematuria, abnormal menses Musculoskeletal: Denies: back pain Skin: Denies: rash Neurological: Denies: headache, weakness, numbness <Salomón Valdivia - Last Filed: 04/06/20 06:54> ROS Other: All systems not noted in ROS Statement are negative. <Jeffrey August - Last Filed: 04/06/20 10:13> ROS Statement: Those systems with pertinent positive or pertinent negative responses have been documented in the HPI. EKG Findings - EKG Results: EKG: WNL, sinus rhythm (With sinus arrhythmia, rate 68 bpm), normal axis, normal QRS, normal ST/T - CT, Pacemaker, Normal: Normal tracing: normal tracing <Salomón Valdivia - Last Filed: 04/06/20 06:54> Past Medical History Past Medical History: No Reported History Additional Past Medical History / Comment(s): Obstetric history: She has had one termination, 6 spontaneous abortions, and one vaginal delivery. This is her ninth . History of Any Multi-Drug Resistant Organisms: None Reported Past Surgical History: No Surgical Hx Reported Past Anesthesia/Blood Transfusion Reactions: No Reported Reaction Past Psychological History: No Psychological Hx Reported Smoking Status: Current every day smoker Past Alcohol Use History: Occasional Past Drug Use History: Marijuana - Past Family History Mother Family Medical History: No Reported History <Salomón Valdivia - Last Filed: 04/06/20 06:54> General Exam General appearance: alert, in no apparent distress Head exam: Present: atraumatic, normocephalic Eye exam: Present: normal appearance. Absent: scleral icterus, conjunctival injection ENT exam: Present: normal oropharynx Neck exam: Present: normal inspection, full ROM Respiratory exam: Present: normal lung sounds bilaterally. Absent: respiratory distress, wheezes, rales, rhonchi, stridor Cardiovascular Exam: Present: regular rate, normal rhythm, normal heart sounds. Absent: systolic murmur, diastolic murmur, rubs, gallop GI/Abdominal exam: Present: soft, tenderness, normal bowel sounds. Absent: distended, guarding, rebound, rigid, mass, pulsatile mass, hernia Extremities exam: Present: normal inspection, normal capillary refill. Absent: pedal edema, calf tenderness Back exam: Present: normal inspection. Absent: CVA tenderness (R), CVA tenderness (L) Neurological exam: Present: alert Skin exam: Present: warm, dry, intact, normal color. Absent: rash <Salomón Valdivia - Last Filed: 04/06/20 06:54> Course <Jeffrey August - Last Filed: 04/06/20 10:13> Vital Signs 04/06/20 04/06/20 04/06/20 01:23 02:00 04:33 Temperature 98.1 F 98.3 F Pulse Rate 72 74 67 Respiratory 18 16 16 Rate Blood Pressure 135/88 117/79 110/65 O2 Sat by Pulse 98 100 Oximetry 04/06/20 04/06/20 06:23 08:48 Temperature 97.7 F Pulse Rate 52 L 53 L Respiratory 14 16 Rate Blood Pressure 102/63 103/66 O2 Sat by Pulse 98 99 Oximetry - Reevaluation(s) Reevaluation #1: 04/06/20 10:11 Computed tomography scan of the abdomen pelvis reported as nonobstructing calculi left kidney. No hydronephrosis Abdominal ultrasound of the gallbladder shows borderline hepatomegaly, cholelithiasis. Patient reevaluated by myself, Dr. August. Patient still having discomfort. Abdomen with moderate tenderness right upper quadrant and epigastrium. Dr. Hitchcock was paged. Dr. Hitchcock is still in the OR at this time and case was relayed to him for admission. (Jeffrey August) Disposition Is patient prescribed a controlled substance at d/c from ED?: No <Salomón Valdivia - Last Filed: 04/06/20 06:54> Is patient prescribed a controlled substance at d/c from ED?: No <Jeffrey August - Last Filed: 04/06/20 10:13> Clinical Impression: Biliary colic, Cholelithiasis Disposition: ADMITTED IP TO THIS HOSP Condition: Good Instructions (If sedation given, give patient instructions): Abdominal Pain (ED) Referrals: None,Stated [Primary Care Provider] - 1-2 days
[2020-04-06] MEDS: ONDANSETRON 4 MG/2 ML VIAL IVP STA (01:37)
[2020-04-06 01:56] LABS: Basophils % (A) 0 %; Eosinophils # (A) 0.1 k/uL (0-0.7); Eosinophils % (A) 1 %; HCT 42.6 % (34.0-46.0); HGB 14.2 gm/dL (11.4-16.0); Lymphocytes # (A) 1.8 k/uL (1.0-4.8); Lymphocytes % (A) 18 %; MCHC 33.3 g/dL (31.0-37.0); Monocytes # (A) 0.6 k/uL (0-1.0); Monocytes % (A) 6 %; Neutrophils # (A) 7.4 k/uL (1.3-7.7); Neutrophils % (A) 74 %; Platelet Count 223 k/uL (150-450); RBC 5.07 m/uL (3.80-5.40); RDW 13.3 % (11.5-15.5); WBC 10.1 k/uL (3.8-10.6)
[2020-04-06 02:08] LABS: ALT 115 U/L (4-34); AST 302 U/L (14-36); African American GFR (CKD) >90 (>60 ml/min/1.73 sqM); Albumin 4.9 g/dL (3.5-5.0); Alkaline Phosphatase 70 U/L (38-126); Amylase 53 U/L (30-110); Anion Gap 12 mmol/L; Blood Urea Nitrogen 10 mg/dL (7-17); Calcium 10.2 mg/dL (8.4-10.2); Carbon Dioxide 22 mmol/L (22-30); Chloride 106 mmol/L (98-107); Glucose 110 mg/dL (74-99); Lipase 142 U/L (23-300); Non-African American GFR(CKD) >90 (>60 ml/min/1.73 sqM); Potassium 4.2 mmol/L (3.5-5.1); Sodium 140 mmol/L (137-145); Total Bilirubin 0.9 mg/dL (0.2-1.3); Total Protein 7.9 g/dL (6.3-8.2)
[2020-04-06 02:48] LABS: Amorphous Sediment,Urine Few /hpf; Appearance,Urine Turbid (Clear); Bilirubin,Urine Negative (Negative); Blood,Urine Negative (Negative); Color,Urine Yellow; Glucose,Urine (UA) Negative (Negative); Ketones,Urine Negative (Negative); Leukocyte Esterase,Urine Negative (Negative); Nitrite,Urine Negative (Negative); PH, Urine 7.5 (5.0-8.0); Protein,Urine Trace (Negative); Specific Gravity,Urine 1.017 (1.001-1.035)
--- NOTE | 2020-04-06 03:01 | CT ---
EXAM: CT Abdomen and Pelvis Without Intravenous Contrast CLINICAL HISTORY: ITS.REASON CT Reason: Epigastric abdominal pain. TECHNIQUE: Axial computed tomography images of the abdomen and pelvis without intravenous contrast. CTDI is 7.27 mGy and DLP is 407.30 mGy-cm. This CT exam was performed using one or more of the following dose reduction techniques: automated exposure control, adjustment of the mA and/or kV according to patient size, and/or use of iterative reconstruction technique. COMPARISON: No relevant prior studies available. FINDINGS: Lung bases: Unremarkable. ABDOMEN: Liver: Unremarkable. Gallbladder and bile ducts: Unremarkable. Pancreas: Unremarkable. Spleen: Unremarkable. Adrenals: Unremarkable. Kidneys and ureters: Nonobstructing calculi within the left kidney. No hydronephrosis. Stomach and bowel: Unremarkable. PELVIS: Appendix: Appendix is unremarkable. Bladder: Unremarkable. Reproductive: Unremarkable as visualized. ABDOMEN and PELVIS: Intraperitoneal space: Unremarkable. Bones/joints: No acute fracture. No dislocation. Soft tissues: Unremarkable. Vasculature: Punctate calcifications of the pelvis, likely phleboliths. Lymph nodes: Unremarkable. IMPRESSION: Nonobstructing calculi within the left kidney. No hydronephrosis.
--- NOTE | 2020-04-06 08:25 | US ---
EXAMINATION TYPE: US abdomen limited DATE OF EXAM: 04/06/2020 COMPARISON: CT 2020 CLINICAL HISTORY: attention RUQ. Abdominal pain. Abdomen pain and N/V x 1 day EXAM MEASUREMENTS: Liver Length: 17.4 cm Gallbladder Wall: 0.2 cm CBD: 0.4 cm Right Kidney: 10.2 x 5.2 x 5.4 cm Pancreas: wnl Liver: measures in upper limits of normal Gallbladder: cholelithiasis Evidence for sonographic Joe's sign: no CBD: wnl Right Kidney: wnl IMPRESSION: Borderline hepatomegaly, cholelithiasis
[2020-04-06] MEDS ORDERED: FAMOTIDINE 20 MG/2 ML VIAL IV STA (08:32)
[2020-04-06] MEDS ORDERED: ONDANSETRON 4 MG/2 ML VIAL IVP PRN (10:13)
[2020-04-06] MEDS ORDERED: NALOXONE 0.4 MG/ML 1 ML VIAL IV PRN (10:13)
[2020-04-06] MEDS ORDERED: HYDROmorphone 1 MG/ML 1 ML SYRINGE IVP PRN (10:13)
[2020-04-06] MEDS: SODIUM CHLORIDE 0.9% 1,000 ML IV SCH ×2 (10:37→18:15)
[2020-04-06] MEDS: HYDROmorphone 0.5 MG/0.5 ML SYRINGE IVP PRN ×5 (10:37→22:44)
--- NOTE | 2020-04-06 12:04 | P.GSHP ---
History of Present Illness H&P Date: 04/06/20 CHIEF COMPLAINT: Epigastric abdominal pain HISTORY OF PRESENT ILLNESS: This is a 29-year-old female who presented to the emergency room with complaints of epigastric abdominal pain that radiated to her back. She reports that symptoms started around 9:00 last night and continued through 1:30 this morning without any relief. Therefore she came into the ER for further evaluation and treatment. She reports that she's had similar pain about 5 or 6 times and has never had any workup completed. She did have vomiting. She said the pain was worse this time and previous episodes and it was not improving. She denies any fever chills or sweats. She had abdominal ultrasound completed which had shown cholelithiasis and borderline hepatomegaly. PAST MEDICAL HISTORY: See list. PAST SURGICAL HISTORY: See list. MEDICATIONS: See list. ALLERGIES: See list. SOCIAL HISTORY: No illicit drug use. REVIEW OF SYSTEMS: CONSTITUTIONAL: Denies fever or chills. HEENT: Denies blurred vision, vision changes, or eye pain. Denies hemoptysis CARDIOVASCULAR: Denies chest pain or pressure. RESPIRATORY: No shortness of breath. GASTROINTESTINAL: See HPI for pertinent findings HEMATOLOGIC: Denies bleeding disorders. GENITOURINARY: Denies any blood in urine or increased urinary frequency. SKIN: Denies pruitis. Denies rash. PHYSICAL EXAM: VITAL SIGNS: Reviewed GENERAL: Well-developed in no acute distress. HEENT: No sclera icterus. Extraocular movements grossly intact. Moist buccal mucosa. Head is atraumatic, normocephalic. No nasal drainage. ABDOMEN: Soft. Nondistended. Nontender NEUROLOGIC: Alert and oriented. Cranial nerves II through XII grossly intact. LABORATORY DATA: WBC 10.1 hemoglobin 14.2 d-dimer 0.30 sodium 140 creatinine 0.63 total bili 0.9 AST 302 ALT 115 alk phos 70 amylase and lipase normal UA negative for infection COVID Negative IMAGING: Abdominal ultrasound completed which had shown cholelithiasis and borderline hepatomegaly Computed tomography scan of the abdomen and pelvis shows nonobstructing calculi within the left kidney. No hydronephrosis ASSESSMENT: 1. Symptomatic cholelithiasis 2. Elevated LFTs PLAN: -Patient scheduled for laparoscopic cholecystectomy tomorrow, 04/07/[address] Hitchcock -Nelia for low-fat diet today and then nothing by mouth after midnight -Continue pain medication as needed -Continue IV fluids -Repeat labs in a.m. -GI prophylaxis Protonix and DVT prophylaxis subcu heparin Physician Circular Knitter Helper note has been reviewed by physician. Signing provider agrees with the documented findings, assessment, and plan of care. Past Medical History Past Medical History: No Reported History Additional Past Medical History / Comment(s): Bronchitis as a child. History of Any Multi-Drug Resistant Organisms: None Reported Past Surgical History: No Surgical Hx Reported Additional Past Surgical History / Comment(s): D&C Past Anesthesia/Blood Transfusion Reactions: No Reported Reaction Smoking Status: Current every day smoker - Past Family History Mother Family Medical History: Asthma Father History Unknown: Yes Medications and Allergies Home Medications Medication Instructions Recorded Confirmed Type medroxyPROGESTERone [Depo-Provera] 150 mg IM Q90D 04/06/20 04/06/20 History Allergies Allergy/AdvReac Type Severity Reaction Status Date / Time No Known Allergies Allergy Verified 04/06/20 06:45 Surgical - Exam Vital Signs Temp Pulse Resp BP Pulse Ox 98.1 F 72 18 135/88 98 04/06/20 01:23 04/06/20 01:23 04/06/20 01:23 04/06/20 01:23 04/06/20 01:23 Results - Labs 04/06/20 01:35 04/06/20 01:35 Abnormal Lab Results - Last 24 Hours (Table) 04/06/20 04/06/20 Range/Units 01:35 01:35 Glucose 110 H (74-99) mg/dL AST 302 H (14-36) U/L ALT 115 H (4-34) U/L Urine Appearance Turbid H (Clear) Urine Protein Trace H (Negative) Amorphous Sediment Few H (None) /hpf Diabetes panel 04/06/20 Range/Units 01:35 Sodium 140 (137-145) mmol/L Potassium 4.2 (3.5-5.1) mmol/L Chloride 106 (98-107) mmol/L Carbon Dioxide 22 (22-30) mmol/L BUN 10 (7-17) mg/dL Creatinine 0.63 (0.52-1.04) mg/dL Glucose 110 H (74-99) mg/dL Calcium 10.2 (8.4-10.2) mg/dL AST 302 H (14-36) U/L ALT 115 H (4-34) U/L Alkaline Phosphatase 70 (38-126) U/L Total Protein 7.9 (6.3-8.2) g/dL Albumin 4.9 (3.5-5.0) g/dL Calcium panel 04/06/20 Range/Units 01:35 Calcium 10.2 (8.4-10.2) mg/dL Albumin 4.9 (3.5-5.0) g/dL Pituitary panel 04/06/20 Range/Units 01:35 Sodium 140 (137-145) mmol/L Potassium 4.2 (3.5-5.1) mmol/L Chloride 106 (98-107) mmol/L Carbon Dioxide 22 (22-30) mmol/L BUN 10 (7-17) mg/dL Creatinine 0.63 (0.52-1.04) mg/dL Glucose 110 H (74-99) mg/dL Calcium 10.2 (8.4-10.2) mg/dL Adrenal panel 04/06/20 Range/Units 01:35 Sodium 140 (137-145) mmol/L Potassium 4.2 (3.5-5.1) mmol/L Chloride 106 (98-107) mmol/L Carbon Dioxide 22 (22-30) mmol/L BUN 10 (7-17) mg/dL Creatinine 0.63 (0.52-1.04) mg/dL Glucose 110 H (74-99) mg/dL Calcium 10.2 (8.4-10.2) mg/dL Total Bilirubin 0.9 (0.2-1.3) mg/dL AST 302 H (14-36) U/L ALT 115 H (4-34) U/L Alkaline Phosphatase 70 (38-126) U/L Total Protein 7.9 (6.3-8.2) g/dL Albumin 4.9 (3.5-5.0) g/dL
[2020-04-06] MEDS: HEPARIN SODIUM,PORCINE 5,000 UNIT/ML 1 ML VIAL SQ SCH (19:42)
[2020-04-07] MEDS: SODIUM CHLORIDE 0.9% 1,000 ML IV SCH ×3 (03:43→21:44)
[2020-04-07] MEDS: HYDROmorphone 0.5 MG/0.5 ML SYRINGE IVP PRN ×4 (03:44→15:59)
[2020-04-07 05:44] LABS: Basophils % (A) 1 %; Eosinophils # (A) 0.2 k/uL (0-0.7); Eosinophils % (A) 3 %; HGB 11.8 gm/dL (11.4-16.0); Lymphocytes % (A) 57 %; MCH 28.4 pg (25.0-35.0); MCHC 32.8 g/dL (31.0-37.0); MCV 86.7 fL (80.0-100.0); Mean Platelet Volume 8.4; Monocytes # (A) 0.2 k/uL (0-1.0); Monocytes % (A) 5 %; Neutrophils # (A) 1.8 k/uL (1.3-7.7); Neutrophils % (A) 34 %; Platelet Count 187 k/uL (150-450); RBC 4.16 m/uL (3.80-5.40); RDW 13.3 % (11.5-15.5); WBC 5.2 k/uL (3.8-10.6)
[2020-04-07 06:14] LABS: ALT 97 U/L (4-34); AST 49 U/L (14-36); African American GFR (CKD) >90 (>60 ml/min/1.73 sqM); Albumin 3.5 g/dL (3.5-5.0); Alkaline Phosphatase 53 U/L (38-126); Anion Gap 4 mmol/L; Blood Urea Nitrogen 12 mg/dL (7-17); Calcium 8.7 mg/dL (8.4-10.2); Carbon Dioxide 24 mmol/L (22-30); Chloride 106 mmol/L (98-107); Glucose 91 mg/dL (74-99); Non-African American GFR(CKD) >90 (>60 ml/min/1.73 sqM); Potassium 4.3 mmol/L (3.5-5.1); Sodium 134 mmol/L (137-145); Total Bilirubin 0.4 mg/dL (0.2-1.3); Total Protein 5.9 g/dL (6.3-8.2)
[2020-04-07] MEDS: PANTOPRAZOLE 40 MG/10 ML VIAL IV SCH (08:40)
[2020-04-07] MEDS: HEPARIN SODIUM,PORCINE 5,000 UNIT/ML 1 ML VIAL SQ SCH ×2 (08:40→20:07)
[2020-04-07] MEDS ORDERED: IV FLUID CONTINUATION 1,000 ML IV ONE (10:57)
[2020-04-07] MEDS: ONDANSETRON 4 MG/2 ML VIAL IVP STA (11:09)
[2020-04-07] MEDS ORDERED: DEXAMETHASONE SOD PHOSPHATE 4 MG/ML 1 ML VIAL IVP ONE (11:09)
[2020-04-07] MEDS ORDERED: HYDROmorphone 0.5 MG/0.5 ML SYRINGE IVP ONE ×3 (12:19→13:30)
[2020-04-07] MEDS ORDERED: MIDAZOLAM 2 MG/2 ML VIAL ONE (12:29)
[2020-04-07] MEDS ORDERED: PROPOFOL 10 MG/ML 20 ML VIAL IV ONE (12:29)
[2020-04-07] MEDS ORDERED: fentaNYL (PF) 50 MCG/ML 2 ML AMP ONE (12:29)
[2020-04-07] MEDS ORDERED: LIDOCAINE 1% INJ 10MG/ML (20 ML MDV) ONE (12:29)
[2020-04-07] MEDS ORDERED: HYDROmorphone (PF) 1 MG/ML ONE (12:29)
[2020-04-07] MEDS ORDERED: SUCCINYLCHOLINE CHLORIDE 100 MG/5 ML SYR IV ONE (12:29)
[2020-04-07] MEDS ORDERED: ROCURONIUM 10 MG/ML (10 ML VIAL) IV ONE (12:29)
[2020-04-07] MEDS ORDERED: BUPIVACAIN-EPI 0.5%-1:200,000 30 ML VIAL SQ ONE ×2 (12:48→12:51)
--- NOTE | 2020-04-07 13:13 | P.OP ---
Date of Procedure: 04/07/20 Preoperative Diagnosis: Cholelithiasis Cholecystitis Postoperative Diagnosis: Cholelithiasis Cholecystitis Procedure(s) Performed: Laparoscopic cholecystectomy Anesthesia: GRACIA Surgeon: Jose Hitchcock Estimated Blood Loss (ml): 10 Pathology: other (Gallbladder) Condition: stable Disposition: PACU Description of Procedure: The patient was placed on the operating table. The patient received a general endotracheal tube anesthesia. The patients abdomen was prepped and draped in the usual sterile fashion. Through an infraumbilical stab incision, the fascia of the anterior abdominal wall was grasped with a pair of Kochers and then the Veress needle was placed in the peritoneal cavity. Position of the Veress needle was confirmed with positive drop test. The abdomen was then insufflated. After adequate insufflation, the 10 mm trocar was placed in the peritoneal cavity. Following this the laparoscope was placed in the peritoneal cavity. The patient was placed in the head-up, right side up position and then a 5 mm trocar was placed in the right lateral and right subcostal position under direct visualization. A 8 mm trocar was placed in the epigastric position. The gallbladder was grasped in the fundus and infundibulum. Traction on the gallbladder was placed in the lateral and the cephalad positions. The triangle of Calot was visualized.. The cystic duct was bluntly dissected until the union of the cystic duct and common bile duct w as seen. A critical view of safety was achieved. The cystic duct was then divided and sealed with the Harmonic scissors. A PDS Endoloop was then placed throughout the cystic duct stump. The cystic artery divided and sealed with the Harmonic scissors. The gallbladder was then removed from the liver bed using Harmonic scissors. The gallbladder was then extracted through the epigastric port site. Operative field was checked for any bleeding spots and Harmonic scissors was used to coagulate the liver bed. The abdomen was irrigated. The trocars were removed. The skin was closed using interrupted 3-0 Vicryl suture. Dermabond dressing were applied. The patient tolerated the procedure well.
[2020-04-07] MEDS ORDERED: LACTATED RINGERS 1,000 ML IV ONE (13:36)
[2020-04-07] MEDS: HYDROcodone/APAP 5-325MG 1 EACH TAB PO PRN ×2 (18:41→22:51)
[2020-04-08] MEDS: HYDROmorphone 0.5 MG/0.5 ML SYRINGE IVP PRN ×2 (03:50→07:16)
[2020-04-08] MEDS: HYDROcodone/APAP 5-325MG 1 EACH TAB PO PRN ×3 (04:35→12:49)
[2020-04-08] MEDS: SODIUM CHLORIDE 0.9% 1,000 ML IV SCH (04:36)
[2020-04-08] MEDS: HEPARIN SODIUM,PORCINE 5,000 UNIT/ML 1 ML VIAL SQ SCH (08:28)
[2020-04-08] MEDS: PANTOPRAZOLE 40 MG/10 ML VIAL IV SCH (08:28)
[2020-04-08 08:40] VITALS: BP 125/78; PULSE 65; RESP 14; TEMP 98.3
--- NOTE | 2020-04-08 13:10 | P.DS ---
Providers Date of admission: 04/06/20 10:13 Expected date of discharge: 04/08/20 Attending physician: Jose Hitchcock Primary care physician: Stated None Hospital Course: Discharge diagnosis 1. Chronic Cholecystitis status post laparoscopic cholecystectomy 2. Cholelithiasis Hospital course This is a 29-year-old female who presented to the emergency room with complaints of epigastric abdominal pain that radiated to her back. She reports that symptoms started around 9:00 last night and continued through 1:30 this morning without any relief. Therefore she came into the ER for further evaluation and treatment. She reports that she's had similar pain about 5 or 6 times and has never had any workup completed. She did have vomiting. She said the pain was worse this time and previous episodes and it was not improving. She had a bdominal ultrasound completed which had shown cholelithiasis and borderline hepatomegaly. Patient is status post laparoscopic cholecystectomy. Patient tolerated surgery well. Her pain is controlled. She is tolerating diet. She is ambulating. She is afebrile. She is stable for discharge. Please refer to chart for any further details. Physician Elastic Attacher Coverstitch note has been reviewed by physician. Signing provider agrees with the documented findings, assessment, and plan of care. Patient Condition at Discharge: Stable Plan - Discharge Summary Discharge Rx Participant: No New Discharge Prescriptions: New Docusate [Colace] 100 mg PO BID #30 capsule HYDROcodone/APAP 5-325MG [[place] 5-325] 1 tab PO Q6HR PRN 3 Days #12 tab PRN Reason: Pain Continue medroxyPROGESTERone [Depo-Provera] 150 mg IM Q90D Discharge Medication List medroxyPROGESTERone [Depo-Provera] 150 mg IM Q90D 04/06/20 [History] Docusate [Colace] 100 mg PO BID #30 capsule 04/08/20 [Rx] HYDROcodone/APAP 5-325MG [[place] 5-325] 1 tab PO Q6HR PRN 3 Days #12 tab 04/08/20 [Rx] Follow up Appointment(s)/Referral(s): None,Stated [Primary Care Provider] - 1-2 days Jose Hitchcock MD [STAFF PHYSICIAN] - 1 Week Patient Instructions/Handouts: Hydromorphone (By injection), Low Fat Diet (GEN), Laparoscopic Cholecystectomy (GEN) Activity/Diet/Wound Care/Special Instructions: No driving while taking [place] No lifting over 10 pounds You may shower. No soaking or tub baths for 2 weeks Very light activity until you are reevaluated at your follow up appointment with your surgeon Discharge Disposition: HOME SELF-CARE
== END 2020-04-08 14:34 | disposition home or self-care (01) ==
LOC: EC 01:13 → 6PED 10:13
PROVIDERS: ADMIT Surgery; ATTEND Surgery
DX: K80.10 Calculus of gallbladder with chronic cholecystitis without obstruction (principal); R16.0 Hepatomegaly, not elsewhere classified; R79.89 Other specified abnormal findings of blood chemistry; F17.200 Nicotine dependence, unspecified, uncomplicated; Z87.09 Personal history of other diseases of the respiratory system; Z82.5 Family history of asthma and other chronic lower respiratory diseases; Z20.828 Contact with and (suspected) exposure to other viral communicable diseases
CPT/HCPCS: 96376; 96361; 96374; 96375; 99285; 36415; 93005; 81025 ×2; 85379; 88304; 80053 ×2; 82150; 83690; 84484; 85025 ×2; 81001; 87635; 76705; 74176; 47562; G0378 ×3; J2250; J1644 ×3; J1100; J2405 ×2; J2001; J3010; J1170 ×4; J0330; J2704; C9113 ×2

== ENCOUNTER 2020-06-10 10:30 | Emergency (ER) | payer OTHER ==
[2020-06-10 10:37] VITALS: TEMP 98.4
[2020-06-10] MEDS ORDERED: IBUPROFEN 400 MG TAB PO STA (10:58)
--- NOTE | 2020-06-10 11:38 | ED ---
ENT HPI - General Chief complaint: ENT Stated complaint: throat swelling Time Seen by Provider: 06/10/20 10:37 Source: patient Mode of arrival: ambulatory Limitations: no limitations - History of Present Illness Initial comments: Matilde 9 year female presenting to the emergency department today for chief complaint of sore throat 2 days. Patient states yesterday and today she has had a sore throat. She states she noticed white dots on her tonsils. Patient denies any difficulty swallowing breathing. She denies any fevers or general malaise. Patient states that she has had some chills. Patient denies vomiting abdominal pain rashes. Patient denies maciel to. She has no additional complaints upon arrival she appears well and nontoxic in no acute distress. - Related Data Home Medications Medication Instructions Recorded Confirmed medroxyPROGESTERone [Depo-Provera] 150 mg IM Q84D 04/06/20 06/10/20 Previous Rx's Medication Instructions Recorded Amoxicillin 500 mg PO Q8H 7 Days #21 capsule 06/10/20 Allergies Allergy/AdvReac Type Severity Reaction Status Date / Time No Known Allergies Allergy Verified 06/10/20 11:05 Review of Systems ROS Statement: Those systems with pertinent positive or pertinent negative responses have been documented in the HPI. ROS Other: All systems not noted in ROS Statement are negative. Past Medical History Past Medical History: No Reported History Additional Past Medical History / Comment(s): Bronchitis as a child. History of Any Multi-Drug Resistant Organisms: None Reported Past Surgical History: Cholecystectomy Additional Past Surgical History / Comment(s): D&C Past Anesthesia/Blood Transfusion Reactions: No Reported Reaction Past Psychological History: No Psychological Hx Reported Smoking Status: Current every day smoker Past Alcohol Use History: Occasional Past Drug Use History: Marijuana - Past Family History Mother Family Medical History: Asthma Father History Unknown: Yes General Exam - General Exam Comments Initial Comments: General: The patient is awake and alert, in no distress Eye: +3 mm pupils are equal, round and reactive to light, extra-ocular movements are intact. No nystagmus. There is normal conjunctiva bilaterally. No signs of icterus. Ears, nose, mouth and throat: There are moist mucous membranes and no oral lesions. Oropharynx mildly erythematous there is tonsillar exudates. Uvula is midline no tripoding no drooling tolerate oral secretions without difficulty Neck: The neck is supple, there is no tenderness or JVD. Cardiovascular: There is a regular rate and rhythm. No murmur, rub or gallop is appreciated. Respiratory: Lungs are clear to auscultation, respirations are non-labored, breath sounds are equal. No wheezes, stridor, rales, or rhonchi. Gastrointestinal: Soft, non-distended, non-tender abdomen without masses or organomegaly noted. There is no rebound or guarding present. Musculoskeletal: Normal ROM, no tenderness. Strength 5/5. Sensation intact. Radial and DP pulses equal bilaterally 2+. Neurological: A&O x 3. CN II-XII intact grossly, There are no obvious motor or sensory deficits. Coordination appears grossly intact. Speech is normal. Skin: Skin is warm and dry and no rashes or lesions are noted. Psychiatric: Cooperative, appropriate mood & affect, normal judgment. Limitations: no limitations Course Vital Signs 06/10/20 06/10/20 10:34 12:38 Temperature 98.4 F Pulse Rate 67 60 Respiratory 18 16 Rate Blood Pressure 104/68 108/69 O2 Sat by Pulse 100 98 Oximetry Medical Decision Making - Medical Decision Making Strep pharyngitis (-). covid (-). However patient's symptoms do appear consistent with strep pharyngitis and we are waiting pending culture. Did provide patient amoxicillin prescription and advised her to discontinue if she develops rash return to the emergency department. Patient is agreeable to this care plan as well as discharge at this time. - Lab Data Lab Results 06/10/20 06/10/20 Range/Units 11:00 11:00 Coronavirus (PCR) Not Detected (Not Detectd) Group A Strep Rapid Negative (Negative) Disposition Clinical Impression: Pharyngitis Disposition: HOME SELF-CARE Condition: Good Instructions (If sedation given, give patient instructions): Pharyngitis (ED), Strep Throat (ED) Additional Instructions: Please use medication as discussed. Please follow-up with family doctor in the next 2 days.. Please return to emergency room if the symptoms increase or worsen or for any other concerns. Prescriptions: Amoxicillin 500 mg PO Q8H 7 Days #21 capsule Is patient prescribed a controlled substance at d/c from ED?: No Referrals: None,Stated [Primary Care Provider] - 1-2 days Time of Disposition: 11:38
[2020-06-10 12:40] VITALS: BP 108/69; PULSE 60; RESP 16
== END 2020-06-10 12:38 | disposition home or self-care (01) ==
LOC: EC 10:30
DX: J02.9 Acute pharyngitis, unspecified (principal); F17.200 Nicotine dependence, unspecified, uncomplicated; F12.90 Cannabis use, unspecified, uncomplicated; Z90.49 Acquired absence of other specified parts of digestive tract
CPT/HCPCS: 87081; 87430; 87635; 99283

== ENCOUNTER 2021-08-23 23:12 | Emergency (ER) | payer OTHER ==
[2021-08-23 23:16] VITALS: BP 126/84; PULSE 72; RESP 18; TEMP 98.3
--- NOTE | 2021-08-24 00:33 | ED ---
URI HPI - General Chief Complaint: Upper Respiratory Infection Stated Complaint: ears ringing, eye problem Time Seen by Provider: 08/24/21 00:12 Source: patient Mode of arrival: ambulatory Limitations: no limitations - History of Present Illness Initial Comments: Patient is a 30-year-old female presenting with chief complaint of ear pain. Patient states that for the last 2 days she has had increasing ear pain and pressure, which alternates between the years. Patient states that at times she is unable to hear out of the right ear, she denies any otorrhea. She also admits to nasal congestion and dry cough. Patient had Covid 3 weeks ago, states that she completely recovered and then started having the symptoms. She admits to some eye drainage today to the right eye. She denies any sinus pain or pressure. Denies any sore throat, dysphagia, shortness of breath, chest pain, fever, chills, nausea, vomiting, abdominal pain, pain/redness/swelling behind the ear. - Related Data Home Medications Medication Instructions Recorded Confirmed medroxyPROGESTERone [Depo-Provera] 150 mg IM Q84D 04/06/20 06/10/20 Previous Rx's Medication Instructions Recorded Amoxicillin 500 mg PO Q8H 7 Days #21 capsule 06/10/20 Amoxic-Pot Clav 875-125Mg 1 tab PO BID 7 Days #14 tab 08/24/21 [Augmentin 875-125] Allergies Allergy/AdvReac Type Severity Reaction Status Date / Time No Known Allergies Allergy Verified 08/23/21 23:15 Review of Systems ROS Statement: Those systems with pertinent positive or pertinent negative responses have been documented in the HPI. ROS Other: All systems not noted in ROS Statement are negative. Past Medical History Past Medical History: No Reported History Additional Past Medical History / Comment(s): Bronchitis as a child. History of Any Multi-Drug Resistant Organisms: None Reported Past Surgical History: Cholecystectomy Additional Past Surgical History / Comment(s): D&C Past Anesthesia/Blood Transfusion Reactions: No Reported Reaction Past Psychological History: No Psychological Hx Reported Smoking Status: Current every day smoker Past Alcohol Use History: Occasional Past Drug Use History: Marijuana - Past Family History Mother Family Medical History: Asthma Father History Unknown: Yes General Exam Limitations: no limitations General appearance: alert, in no apparent distress Head exam: Present: atraumatic, normocephalic, normal inspection Eye exam: Present: normal appearance, EOMI. Absent: scleral icterus, periorbital swelling Expanded Eyelids: Normal Inspection: Bilateral (No discharge, erythema, swelling) ENT exam: Present: normal oropharynx, mucous membranes moist, other (No mastoid tenderness) Expanded TM/Canal exam: Erythema: Right TM, Effusion: Right TM Mouth exam: Present: normal external inspection, tongue normal. Absent: drooling, trismus, muffled voice Throat exam: normal inspection Neck exam: Present: normal inspection. Absent: tenderness Respiratory exam: Present: normal lung sounds bilaterally. Absent: respiratory distress, wheezes, rales, rhonchi, stridor Cardiovascular Exam: Present: regular rate, normal rhythm, normal heart sounds. Absent: systolic murmur, diastolic murmur, rubs, gallop, clicks Neurological exam: Present: alert, oriented X3, CN II-XII intact Psychiatric exam: Present: normal affect, normal mood Skin exam: Present: warm, dry, intact, normal color. Absent: rash Course Vital Signs 08/23/21 23:14 Temperature 98.3 F Pulse Rate 72 Respiratory 18 Rate Blood Pressure 126/84 O2 Sat by Pulse 99 Oximetry Medical Decision Making - Medical Decision Making Patient is a 30-year-old female presenting with chief complaint of ear pain. Located mainly in the right ear, that has been ongoing for the last 2 days. She admits to some hearing loss. She also admits to congestion and dry cough. On examination right tympanic membrane is erythematous, no mastoid tenderness, normal posterior pharynx, no midline shift. No muffled voice or drooling. Patient will be treated for otitis media with Augmentin 875 twice a day for 7 days. Follow-up with PCP in one to 2 days. Report back to ER with any new or worsening symptoms. I discussed supportive treatment. Discussed return parameters answered all questions. Patient conveyed verbal understanding and agreed to the plan. Disposition Clinical Impression: Otitis media Disposition: HOME SELF-CARE Condition: Good Instructions (If sedation given, give patient instructions): Ear Infection (ED) Additional Instructions: Follow-up with PCP in one to 2 days. Report back to ER with any new or worsening symptoms. Take medication as prescribed. Take Motrin, Tylenol for pain control. Take an [id number] antihistamine for symptomatic relief. Prescriptions: Amoxic-Pot Clav 875-125Mg [Augmentin 875-125] 1 tab PO BID 7 Days #14 tab Is patient prescribed a controlled substance at d/c from ED?: No Referrals: Pauline Curiel MD [STAFF PHYSICIAN] - 1-2 days Time of Disposition: 00:33
== END 2021-08-24 00:37 | disposition home or self-care (01) ==
LOC: EC 23:12
DX: H66.90 Otitis media, unspecified, unspecified ear (principal); F17.200 Nicotine dependence, unspecified, uncomplicated

== ENCOUNTER 2021-10-27 15:17 | Emergency (ER) | payer OTHER ==
[2021-10-27 15:37] VITALS: BP 115/77; PULSE 75; RESP 20; TEMP 98.2
[2021-10-27] MEDS ORDERED: KETOROLAC 15 MG/ML 1 ML VIAL IM STA (16:20)
--- NOTE | 2021-10-27 16:25 | XR ---
EXAMINATION TYPE: XR shoulder complete RT DATE OF EXAM: 10/27/2021 COMPARISON: NONE HISTORY: Pain TECHNIQUE: Shoulder examined in 3 projections FINDINGS: The humeral head articulates with the glenoid. The acromio-clavicular junction is normal. No acute fractures or dislocations are evident. A follow up study can be performed 7-10 days from acute trauma for continued pain. IMPRESSION: 1. No acute osseous abnormality right shoulder
--- NOTE | 2021-10-27 16:32 | ED ---
General Adult HPI - General Chief complaint: Extremity Injury, Upper Stated complaint: shoulder pain Time Seen by Provider: 10/27/21 16:07 Source: patient, RN notes reviewed, old records reviewed Mode of arrival: ambulatory Limitations: no limitations - History of Present Illness Initial comments: This is a well-appearing 30-year-old female that presents to the emergency room with complaints of right shoulder pain for 3 days after helping her sister move. She does not recall a specific injury. She states that she was sent here by her employer for evaluation -: days(s) (3) Location: right (shoulder), upper extremity Radiation: non-radiation Severity scale (1-10): 5 Quality: aching, constant Consistency: constant Improves with: immobilization Worsens with: movement Associated Symptoms: denies other symptoms Treatments Prior to Arrival: none - Related Data Home Medications Medication Instructions Recorded Confirmed medroxyPROGESTERone [Depo-Provera] 150 mg IM Q84D 04/06/20 06/10/20 Previous Rx's Medication Instructions Recorded Amoxicillin 500 mg PO Q8H 7 Days #21 capsule 06/10/20 Amoxic-Pot Clav 875-125Mg 1 tab PO BID 7 Days #14 tab 08/24/21 [Augmentin 875-125] Ibuprofen [Motrin] 600 mg PO Q8HR PRN #30 tab 10/27/21 Allergies Allergy/AdvReac Type Severity Reaction Status Date / Time No Known Allergies Allergy Verified 10/27/21 15:37 Review of Systems ROS Statement: Those systems with pertinent positive or pertinent negative responses have been documented in the HPI. ROS Other: All systems not noted in ROS Statement are negative. Past Medical History Past Medical History: No Reported History Additional Past Medical History / Comment(s): Bronchitis as a child. History of Any Multi-Drug Resistant Organisms: None Reported Past Surgical History: Cholecystectomy Additional Past Surgical History / Comment(s): D&C Past Anesthesia/Blood Transfusion Reactions: No Reported Reaction Past Psychological History: No Psychological Hx Reported Smoking Status: Current every day smoker Past Alcohol Use History: Occasional Past Drug Use History: Marijuana - Past Family History Mother Family Medical History: Asthma Father History Unknown: Yes General Exam Limitations: no limitations General appearance: alert, in no apparent distress Head exam: Present: atraumatic Eye exam: Present: normal appearance. Absent: scleral icterus, conjunctival injection ENT exam: Present: mucous membranes moist Neck exam: Present: full ROM. Absent: tenderness, meningismus Respiratory exam: Present: normal lung sounds bilaterally. Absent: respiratory distress, accessory muscle use Cardiovascular Exam: Present: regular rate Right Shoulder Exam: Present: tenderness. Absent: full ROM, swelling, ecchymosis, deformity, crepitus, dislocation, erythema, tenderness over AC joint Upper Arm exam: Absent: tenderness, swelling Elbow exam: Present: full ROM. Absent: tenderness, swelling, pain w/ pronation/supination, tenderness over radial head Forearm Wrist exam: Present: full ROM. Absent: tenderness Hand Wrist exam: Present: full ROM. Absent: tenderness Vascular: Present: normal capillary refill, radial pulse. Absent: vascular compromise Neurological exam: Present: alert, oriented X3, normal gait Psychiatric exam: Present: normal affect, normal mood Skin exam: Present: warm, dry, normal color. Absent: rash, cyanosis, diaphoretic Course Vital Signs 10/27/21 15:35 Temperature 98.2 F Pulse Rate 75 Respiratory 20 Rate Blood Pressure 115/77 O2 Sat by Pulse 99 Oximetry Medical Decision Making - Medical Decision Making Patient presents with 3 days of right shoulder pain after having helping her sister move. She states this pain is worse with elevation and abduction and relieved with adduction. There is no pain over AC joint. No evidence of swelling or bruising. She denies any specific injury. No shortness of breath or chest pain. X-ray negative for fracture or dislocation. This is likely a shoulder strain. She is requesting a sling which will be provided. She was directed to use sling and if pain persistents follow-up with primary care doctor or orthopedics. Tylenol and/or Motrin as needed for pain. Case was discussed with Dr. Salinas. Disposition Clinical Impression: Strain of shoulder Disposition: HOME SELF-CARE Condition: Good Instructions (If sedation given, give patient instructions): How to Use a Sling (ED), Shoulder Pain (ED) Additional Instructions: Tylenol and/or Motrin as needed for pain. Use the sling as needed for the next 3 days. If pain persists follow-up with the orthopedic doctor or primary care doctor. Prescriptions: Ibuprofen [Motrin] 600 mg PO Q8HR PRN #30 tab PRN Reason: Pain Is patient prescribed a controlled substance at d/c from ED?: No Referrals: None,Stated [Primary Care Provider] - 1-2 days Alejandro Buckley DO [Doctor of Osteopathic Medicine] - 1-2 days Time of Disposition: 16:37
== END 2021-10-27 16:49 | disposition home or self-care (01) ==
LOC: EC 15:17
DX: S46.911A Strain of unspecified muscle, fascia and tendon at shoulder and upper arm level, right arm, initial encounter (principal); F17.200 Nicotine dependence, unspecified, uncomplicated; F12.90 Cannabis use, unspecified, uncomplicated; Z79.899 Other long term (current) drug therapy; X50.9XXA Other and unspecified overexertion or strenuous movements or postures, initial encounter
CPT/HCPCS: 73030; 99283; 96372; J1885

== ENCOUNTER 2022-01-09 11:04 | Outpatient (CLI) | payer OTHER ==
[2022-01-09 11:38] LABS: Amorphous Sediment,Urine Few /hpf; Appearance,Urine Cloudy (Clear); Bacteria,Urine Rare /hpf; Bilirubin,Urine Negative (Negative); Blood,Urine Negative (Negative); Color,Urine Light Yellow; Glucose,Urine (UA) Negative (Negative); Ketones,Urine Negative (Negative); Leukocyte Esterase,Urine Negative (Negative); Mucus,Urine Rare /hpf; Nitrite,Urine Negative (Negative); Protein,Urine Negative (Negative); RBC,Urine 1 /hpf (0-5); Specific Gravity,Urine 1.009 (1.001-1.035); Squamous Epithelial Cell,Urine 4 /hpf (0-4); Urobilinogen,Urine <2.0 mg/dL (<2.0); WBC,Urine 2 /hpf (0-5)
[2022-01-09 12:33] VITALS: BP 127/64; PULSE 75; RESP 18; TEMP 97.6
--- NOTE | 2022-01-10 02:58 | P.MSEPDOC ---
Presenting Problems - Arrival Data Date of Arrival on Unit: 01/09/22 Time of Arrival on Unit: 11:04 Mode of Transport: Ambulatory - Complaint OB-Reason for Admission/Chief Complaint: Rule Out SROM Comment: leaking & UTI symptoms Medical History - Information : 13 Para: 2 Number of Living Children: 2 - Gestational Age Gestational Age by SOSA (wks/days): 21 Weeks and 1 Days - History Comment: ? Short cervix, US 01/19. Review of Systems - Review of Systems Constitutional: No problems Breast: No problems ENT: No problems Cardiovascular: No problems Respiratory: No problems Gastrointestinal: No problems Genitourinary: No problems Musculoskeletal: No problems Neurological: No problems Skin: No problems Vital Signs - Temperature Temperature: 97.6 F Temperature Source: Oral - Pulse Right Sitting Brachial Pulse Rate: 75 Pulse Assessment Method: Automatic Cuff - Respirations Respiratory Rate: 18 Oxygen Delivery Method: Room Air O2 Sat by Pulse Oximetry: 100 - Blood Pressure Right Arm Sitting Blood Pressure: 127/64 Blood Pressure Mean: 85 Blood Pressure Source: Automatic Cuff Medical Screen Scoring - Cervical Exam Dilation (cm): 0 Membranes: Intact Physician Notification - Physician Notified Physician Notified Date: 01/09/22 Physician Notified Time: 12:02 Physician: Nirali Martines Order Received: Yes - Notification Comment Comment: Dc home. Follow up with Dr Hodge in the office as scheduled. Maternal Triage Index - Maternal Triage Index Presenting for scheduled procedure w/no complaint: No - Stat/Priority 1 Stat Priority 1: No - Urgent/Priority 2 Urgent Priority 2: No - Prompt/Priority 3 Prompt Priority 3: No - Non-Urgent/Priority 4 Non-Urgent Priority 4: Yes Criteria Met for Priority 4: UTI symptoms. UA reviewed. Amnisure neg. Discussed pos monistat for discomfort. Cx closed. Disposition - Disposition OB Disposition: Discharge to home Discharge Date: 01/09/22 Discharge Time: 12:20 I agree with the RN Medical Screening Exam: Yes Case reviewed; plan agreed upon as documented in EMR&OBIX.: Yes Diagnosis: RELATED CONDITIONS, UNSPECIFIED, SECOND TRIMESTER
== END 2022-01-09 12:20 | disposition home or self-care (01) ==
LOC: FBPOP 11:04
PROVIDERS: ATTEND Obstetrics & Gynecology
DX: O26.892 Other specified pregnancy related conditions, second trimester (principal); Z3A.21 21 weeks gestation of pregnancy; N39.0 Urinary tract infection, site not specified
CPT/HCPCS: 84112; 81001; G0463; 99213

== ENCOUNTER 2022-01-16 14:43 | Outpatient (CLI) | payer OTHER ==
[2022-01-16] MEDS ORDERED: AMPICILLIN 2,000 MG in SODIUM CHLORIDE 0.9% 100 ML IVPB STA (15:00)
[2022-01-16] MEDS ORDERED: AZITHROMYCIN 500 MG in SODIUM CHLORIDE 0.9% 250 ML IVPB STA (15:02)
[2022-01-16 15:23] LABS: Basophils % (A) 0 %; Eosinophils # (A) 0.1 k/uL (0-0.7); Eosinophils % (A) 1 %; HCT 32.9 % (34.0-46.0); HGB 10.7 gm/dL (11.4-16.0); Lymphocytes # (A) 1.5 k/uL (1.0-4.8); Lymphocytes % (A) 13 %; MCH 27.4 pg (25.0-35.0); MCHC 32.6 g/dL (31.0-37.0); MCV 84.1 fL (80.0-100.0); Mean Platelet Volume 9.4; Monocytes # (A) 0.5 k/uL (0-1.0); Monocytes % (A) 4 %; Neutrophils # (A) 9.7 k/uL (1.3-7.7); Neutrophils % (A) 81 %; Platelet Count 184 k/uL (150-450); RBC 3.92 m/uL (3.80-5.40); RDW 12.9 % (11.5-15.5)
[2022-01-16] MEDS ORDERED: MAGNESIUM SULFATE-WATER PMX 4 GM in WATER FOR INJECTION 1 100ML.BAG IVPB ONE (15:40)
[2022-01-16] MEDS ORDERED: CALCIUM GLUCONATE 1 GM/10 ML VIAL IV PRN (15:40)
[2022-01-16] MEDS ORDERED: LACTATED RINGERS 1,000 ML IV SCH (15:45)
[2022-01-16] MEDS ORDERED: BETAMET ACET-BETAMETH SOD PHOS 6 MG/ML MDV IM SCH (15:45)
[2022-01-16] MEDS ORDERED: MAGNESIUM SULFATE-WATER PMX 20 GM in WATER FOR INJECTION 1 500ML.BAG IV SCH (15:45)
--- NOTE | 2022-01-16 15:45 | US ---
EXAMINATION TYPE: US OB >= 14 wk fetus DATE OF EXAM: 01/16/2022 COMPARISON: None CLINICAL HISTORY: PSROM, ruptured membranes and hudson TECHNIQUE: OBTA GESTATIONAL AGE / DATING Physician Established: (22 weeks/1 days) EDC: 05/21/2022 Dates by First Scan: No previous this is first scan Dates by Current Scan: (21 weeks/6 days) EDC: 05/23/2022 SURVEY IUP: Single PLACENTA: Anterior PREVIA: No Previa LYNN: 4.1 cm Oligohydramnios CERVICAL LENGTH (transabdominal: norm > 3.0cm): lower limb appears to be within dilated cervix BIOMETRY PRESENTATION: Breech LIE: Longitudinal BPD: 4.9 cm 21 weeks / 0 days HC: 19.6 cm 21 weeks / 6 days AC: 18.2 cm 23 weeks / 1 days FL: 3.5 cm 21 weeks / 0 days ESTIMATED WEIGHT IN GRAMS: 469 grams ESTIMATED WEIGHT IN LBS/OZ: 1 lbs. 1 oz. WEIGHT PERCENTAGE BASED ON ESTABLISHED DATES: 37% HC/AC: 1.0 Normal FL/AC: 19 Normal HEART RATE: 165 bpm RHYTHM: Normal *Dr Hodge given tech impression at time of exam IMPRESSION: Decreased amniotic fluid. The ultrasound gestational age is 21 weeks and 6 days.
--- NOTE | 2022-01-16 15:59 | P.HPOB ---
History of Present Illness H&P Date: 01/16/22 Chief Complaint: PROM 31 year old presents at 22 weeks 1 day (EDC 05/21/22 by 14 week US) with spontaneous rupture of membranes. US showed to be 469 grams. LYNN=4cm. Baby is in breech position with a foot near the cervix that is funneling and dilated to 1cm. FHT 140-150 Review of Systems All systems: negative Constitutional: Denies chills, Denies fever Eyes: denies blurred vision, denies pain Ears, nose, mouth and throat: Denies headache, Denies sore throat Cardiovascular: Denies chest pain, Denies shortness of breath Respiratory: Denies cough Gastrointestinal: Denies abdominal pain, Denies diarrhea, Denies nausea, Denies vomiting Genitourinary: Denies dysuria, Denies hematuria Musculoskeletal: Denies myalgias Integumentary: Denies pruritus, Denies rash Neurological: Denies numbness, Denies weakness Psychiatric: Denies anxiety, Denies depression Endocrine: Denies fatigue, Denies weight change Past Medical History Past Medical History: No Reported History Additional Past Medical History / Comment(s): Bronchitis as a child. OB history: 10 SABs and 2 full term vaginal deliveries. B+, abs neg, Rub Imm, RPR NR, Hep B and C neg. History of Any Multi-Drug Resistant Organisms: None Reported Past Surgical History: Cholecystectomy Additional Past Surgical History / Comment(s): D&C Past Anesthesia/Blood Transfusion Reactions: No Reported Reaction Smoking Status: Never smoker - Past Family History Mother Family Medical History: Asthma Father History Unknown: Yes Medications and Allergies Home Medications Medication Instructions Recorded Confirmed Type Acetaminophen Tab [Tylenol] 650 mg PO Q4H PRN 01/16/22 History Vit No.179/Iron/Folic 1 tab PO DAILY 01/16/22 01/16/22 History [ Tablet] Allergies Allergy/AdvReac Type Severity Reaction Status Date / Time No Known Allergies Allergy Verified 01/16/22 14:52 Exam Osteopathic Statement: *. No significant issues noted on an osteopathic structural exam other than those noted in the History and Physical/Consult. Intake and Output 01/16/22 01/16/22 01/16/22 06:59 14:59 22:59 Other: Weight 158 kg 71.668 kg Heart: RRR Lungs: CTAB ABdomen: gravid, nontender Extremeties: neg jeannie's Results Result Diagrams: 01/16/22 15:06 Abnormal Lab Results - Last 24 Hours (Table) 01/16/22 Range/Units 15:06 WBC 12.0 H (3.8-10.6) k/uL Hgb 10.7 L (11.4-16.0) gm/dL Hct 32.9 L (34.0-46.0) % Neutrophils # 9.7 H (1.3-7.7) k/uL Assessment and Plan (1) 22 weeks gestation of Current Visit: Yes Status: Acute Code(s): Z3A.22 - 22 WEEKS GESTATION OF SNOMED Code(s): 55061045 (2) premature rupture of membranes Current Visit: Yes Status: Acute Code(s): O42.919 - PRETRM FROYLAN ROM, UNSP TIME BETW RUPT AND ONST LABR, UNSP TRI SNOMED Code(s): 855521735 Plan: 1. I had a long discussion with the patient about her gestational age, delivery at this time with risks to baby and her. She understands that she is highly likely to deliver a severely infant. Outcomes for infants this small are not always favorable even if we do every medical intervention. She understands that this commits her to a section and possibly a classical where she would have to continue to have c-sections with further pregnancies. Pt would still like to be transferred to a hospital that has the ability to care for a infant. I discussed the case with Dr Truong ([facility] out of [facility]) who is willing to accept transfer. I will start mag sulfate for brain sparing, celestone injection, place quiñonez catheter and transfer by EMS.
[2022-01-16] MEDS ORDERED: AMPICILLIN 1,000 MG in SODIUM CHLORIDE 0.9% 50 ML IVPB SCH (19:00)
== END 2022-01-16 16:35 | disposition other institution (70) ==
LOC: FBPOP 14:43
PROVIDERS: ATTEND Obstetrics & Gynecology
DX: O42.919 Preterm premature rupture of membranes, unspecified as to length of time between rupture and onset of labor, unspecified trimester (principal); Z3A.22 22 weeks gestation of pregnancy
CPT/HCPCS: 96361; 96365; 96366; 96372; 84112; 86900; 86901; 85025; 86850; 76805; G0463; J0456; J3475 ×2; J0290; J0702; 99215

== ENCOUNTER 2022-09-06 10:25 | Day surgery (SDC) | payer OTHER ==
[~2022-09-06 10:25] MED LIST: LACTATED RINGERS 1,000 ML IV SCH; LIDOCAINE 1% (10MG/ML) FOR IV START INTRADERMA PRN
[2022-09-06 10:50] VITALS: TEMP 97.6
[2022-09-06] MEDS ORDERED: fentaNYL (PF) 50 MCG/ML 2 ML AMP ONE (11:13)
[2022-09-06] MEDS ORDERED: MIDAZOLAM 2 MG/2 ML VIAL ONE (11:13)
[2022-09-06] MEDS ORDERED: PROPOFOL 10 MG/ML 20 ML VIAL IV ONE (11:13)
--- NOTE | 2022-09-06 11:16 | P.GSHP ---
History of Present Illness H&P Date: 09/06/22 Chief Complaint: GERD 31-year-old female here for upper endoscopy. Patient with complaints of reflux and abdominal pain. Pain is worse after eating. Feels full easily after eating. Past Medical History Past Medical History: No Reported History Additional Past Medical History / Comment(s): Pt only able to eat small portions or N/V, bronchitis as a child. History of Any Multi-Drug Resistant Organisms: None Reported Past Surgical History: Section, Cholecystectomy Additional Past Surgical History / Comment(s): D&C Past Anesthesia/Blood Transfusion Reactions: No Reported Reaction Smoking Status: Former smoker - Past Family History Mother Family Medical History: Asthma, Diabetes Mellitus Father History Unknown: Yes Family Medical History: No Reported History Medications and Allergies Home Medications Medication Instructions Recorded Confirmed Type Acetaminophen Tab [Tylenol] 650 mg PO Q4H PRN 01/16/22 09/06/22 History Medroxyprogesterone Acetate 150 mg IM Q3M 08/31/22 09/06/22 History [Depo-Provera] Allergies Allergy/AdvReac Type Severity Reaction Status Date / Time No Known Allergies Allergy Verified 09/06/22 10:41 Surgical - Exam Vital Signs Temp Pulse Resp BP Pulse Ox 97.6 F 82 18 124/64 98 09/06/22 10:40 09/06/22 10:40 09/06/22 10:40 09/06/22 10:40 09/06/22 10:40 Physical exam: General: Well-developed, well-nourished HEENT: Normocephalic, sclerae nonicteric Abdomen: Nontender, nondistended Extremities: No edema Neuro: Alert and oriented Assessment and Plan (1) GERD (gastroesophageal reflux disease) Narrative/Plan: Will proceed with EGD Current Visit: Yes Status: Acute Code(s): K21.9 - GASTRO-ESOPHAGEAL REFLUX DISEASE WITHOUT ESOPHAGITIS SNOMED Code(s): 562815005
--- NOTE | 2022-09-06 11:23 | P.PCN ---
Date of Procedure: 09/06/22 Procedure(s) Performed: Preoperative Dx: GERD Postoperative Dx: Mild gastritis, small hiatal hernia Procedure: EGD with Bx Anesthesia: Sedation Endoscopist: Dr. Andersen Specimens: Antrum Endoscopic Procedure: The patient was on the endoscopy table in the left decubitus position. The Olympus gastroscope was inserted into the oropharynx and passed under direct visualization to the region of the third portion of the duodenum. From that point the scope was slowly withdrawn inspecting all surfaces carefully. There were no neoplastic inflammatory or polypoid lesions throughout the duodenum. The pylorus was widely patent. The stomach was carefully inspected. There was mild gastritis present. A biopsy of the antrum took place to rule out H. pylori. Retroflexion revealed a small sliding hiatal hernia less than 1 cm in size. The esophagus was then carefully examined. There were no neoplastic inflammatory or polypoid lesions throughout the visualized esophagus. The patient was then taken to the recovery room in stable condition per anesthesia guidelines. Recommendations: Continue as needed antiacids. Await biopsy results.
[2022-09-06 11:47] VITALS: BP 109/74; PULSE 74; RESP 18
== END 2022-09-06 12:09 | disposition home or self-care (01) ==
LOC: ORWHC2ENDO 10:25
PROVIDERS: ATTEND Surgery
DX: K29.70 Gastritis, unspecified, without bleeding (principal); K44.9 Diaphragmatic hernia without obstruction or gangrene; K21.9 Gastro-esophageal reflux disease without esophagitis; J40 Bronchitis, not specified as acute or chronic; Z87.891 Personal history of nicotine dependence; Z79.899 Other long term (current) drug therapy; Z79.3 Long term (current) use of hormonal contraceptives
CPT/HCPCS: 81025; 88305; 43239; J2250; J3010; J2704

== ENCOUNTER 2023-04-21 08:24 | Day surgery (SDC) | payer OTHER ==
--- NOTE | 2023-04-21 07:50 | P.GSHP ---
History of Present Illness H&P Date: 04/21/23 Chief Complaint: Umbilical hernia 32-year-old female last seen in the office in July. Patient with complaints of bulge at the umbilicus. Sore there at times. Seems to be worse after eating. The bulge that is present is increasing in size since her recent . Past Medical History Past Medical History: No Reported History Additional Past Medical History / Comment(s): bronchitis as a child. History of Any Multi-Drug Resistant Organisms: None Reported Past Surgical History: Section, Cholecystectomy Additional Past Surgical History / Comment(s): D&C Past Anesthesia/Blood Transfusion Reactions: No Reported Reaction Smoking Status: Former smoker - Past Family History Mother Family Medical History: Asthma, Diabetes Mellitus Father History Unknown: Yes Family Medical History: No Reported History Medications and Allergies Home Medications Medication Instructions Recorded Confirmed Type Acetaminophen Tab [Tylenol] 650 mg PO Q4H PRN 01/16/22 04/18/23 History Allergies Allergy/AdvReac Type Severity Reaction Status Date / Time No Known Allergies Allergy Verified 04/18/23 12:14 Surgical - Exam Physical exam: General: Well-developed, well-nourished HEENT: Normocephalic, sclerae nonicteric Abdomen: Nontender, nondistended, small reducible umbilical hernia Extremities: No edema Neuro: Alert and oriented Assessment and Plan (1) Umbilical hernia Narrative/Plan: Umbilical hernia 32-year-old female with symptomatic umbilical hernia. Will proceed with open repair with possible mesh at this time. Risks of bleeding, infection, recurrence, bladder and bowel injury, numbness, nerve injury were discussed with the patient. The patient understands and wishes to proceed. Status: Acute Code(s): K42.9 - UMBILICAL HERNIA WITHOUT OBSTRUCTION OR GANGRENE SNOMED Code(s): 626658057
[~2023-04-21 08:24] MED LIST changes: -LACTATED RINGERS 1,000 ML IV SCH; -LIDOCAINE 1% (10MG/ML) FOR IV START INTRADERMA PRN; +MIDAZOLAM 2 MG/2 ML VIAL IV PRN; +SCOPOLAMINE 1 MG/72 HR PATCH TRANSDERM ONE
[2023-04-21] MEDS: LACTATED RINGERS 1,000 ML IV SCH (08:50)
[2023-04-21 09:11] LABS: Basophils % (A) 1 %; Eosinophils # (A) 0.1 k/uL (0-0.7); Eosinophils % (A) 2 %; HCT 40.6 % (34.0-46.0); HGB 13.4 gm/dL (11.4-16.0); Lymphocytes # (A) 1.6 k/uL (1.0-4.8); Lymphocytes % (A) 35 %; MCH 27.5 pg (25.0-35.0); MCHC 33.1 g/dL (31.0-37.0); Mean Platelet Volume 8.9; Monocytes # (A) 0.2 k/uL (0-1.0); Monocytes % (A) 4 %; Neutrophils # (A) 2.6 k/uL (1.3-7.7); Neutrophils % (A) 57 %; Platelet Count 230 k/uL (150-450); RDW 12.6 % (11.5-15.5); WBC 4.6 k/uL (3.8-10.6)
[2023-04-21] MEDS: ACETAMINOPHEN TAB 500 MG TAB PO PRN (09:13)
[2023-04-21] MEDS: ONDANSETRON 4 MG/2 ML VIAL IVP ONE (09:14)
[2023-04-21] MEDS: DEXAMETHASONE SOD PHOSPHATE 4 MG/ML 1 ML VIAL IV ONE (09:14)
[2023-04-21] MEDS: fentaNYL (PF) 50 MCG/ML 2 ML AMP IVP ONE (09:31)
[2023-04-21] MEDS: MIDAZOLAM 2 MG/2 ML VIAL IVP ONE (09:31)
[2023-04-21] MEDS: HEPARIN SODIUM,PORCINE 5,000 UNIT/ML 1 ML VIAL SQ PRN (09:51)
--- NOTE | 2023-04-21 09:55 | P.ANPRN ---
Procedure Note - Anesthesia - Nerve Block Performed Bilateral Rectus Abdominis Single Time Out Performed: Yes Date of Procedure: 04/21/23 Procedure Start Time: :30 Procedure Stop Time: :37 Location of Patient: PreOp Indication: Acute Post-Operative Pain, Requested by Surgeon Sedation Type: Sedate with meaningful contact maintained Preparation: Sterile Prep Position: Supine Needle Types: Pajunk Needle Gauge: 21 Ultrasound used to visualize needle placement: Yes Ultrasound used to observe medication spread: Yes Injectate: 0.5% Ropivacaine (see comment for volume) (Ropivacaine 0.5% 15 ml + 15 ml NS + 4 mg Dexamethasone) Blood Aspirated: No Pain Paresthesia on Injection Noted: No Resistance on Injection: Normal Image Stored and Saved: Yes Events: Uneventful and Well Tolerated
[2023-04-21] MEDS ORDERED: KETOROLAC 15 MG/ML 1 ML VIAL ONE (10:15)
[2023-04-21] MEDS ORDERED: PROPOFOL 10 MG/ML 20 ML VIAL IV ONE (10:15)
[2023-04-21] MEDS ORDERED: DEXAMETHASONE SOD PHOSPHATE 4 MG/ML 1 ML VIAL ONE (10:15)
[2023-04-21] MEDS ORDERED: GLYCOPYRROLATE 0.2 MG/ML 2 ML VIAL ONE (10:15)
[2023-04-21] MEDS ORDERED: HYDROmorphone (PF) 1 MG/ML ONE (10:15)
[2023-04-21] MEDS ORDERED: MIDAZOLAM 2 MG/2 ML VIAL ONE (10:15)
[2023-04-21] MEDS ORDERED: SUCCINYLCHOLINE CHLORIDE 200 MG/10 ML VIAL IV ONE (10:15)
[2023-04-21] MEDS ORDERED: NEOSTIGMINE 1 MG/ML 10 ML VIAL ONE (10:15)
[2023-04-21] MEDS ORDERED: fentaNYL (PF) 50 MCG/ML 2 ML AMP ONE (10:15)
[2023-04-21] MEDS ORDERED: LIDOCAINE 1% INJ 10MG/ML (20 ML MDV) ONE (10:15)
[2023-04-21] MEDS ORDERED: ROPIVACAINE 5 MG/ML 30 ML VIAL ONE (10:15)
[2023-04-21] MEDS ORDERED: SODIUM CHLORIDE 0.9% (PF) 10 ML VIAL ONE (10:15)
[2023-04-21] MEDS ORDERED: ROCURONIUM 10 MG/ML (5 ML VIAL) IV ONE (10:15)
[2023-04-21] MEDS: BUPIVACAINE (PF) 0.25% 30 ML VIAL SQ ONE ×2 (10:38→11:00)
[2023-04-21] MEDS: HYDROmorphone 0.5 MG/0.5 ML SYRINGE IVP PRN (11:39)
--- NOTE | 2023-04-21 11:43 | P.OP ---
Date of Procedure: 04/21/23 Procedure(s) Performed: PREOPERATIVE DIAGNOSIS: Reducible umbilical hernia POSTOPERATIVE DIAGNOSIS: Same PROCEDURE: Open repair of umbilical hernia with mesh SURGEON: Dr. Andersen ANESTHESIA: General OPERATIVE PROCEDURE DETAILS: The patient was placed in the operating table in the supine position. A curvilinear infraumbilical incision was made using the scalpel. The subcutaneous tissues were dissected bluntly and with cautery. The hernia sac was identified. The umbilical attachments to the fascia were divided using electrocautery. The hernia sac was excised. The defect in the fascia measured 1.5 x 1 cm. The fat overlying the fascia was dissected. No additional defects were seen. The preperitoneal space was then dissected using blunt dissection and electrocautery. The 4.3 cm ventral ex mesh was placed beneath the fascia and sutured in place using trans-fascial 0 Ethibond sutures. The defect was closed using interrupted vest over pants 0 Ethibond mattress sutures. The subcutaneous tissues were reapproximated using inverted 2-0 & 3-0 Vicryl sutures. The umbilicus was tacked back down to the fascia using a 2-0 Vicryl suture. The skin was closed using 4-0 Monocryl sutures. Skin glue and sterile dressings were then applied. HERNIA CHARACTERISTICS: Length: 1 cm Width: 1.5 cm Type: Umbilical TYPE OF MESH USED: Ventral X LOCATION OF MESH: [place] FIXATION: 0 Ethibond PREOPERATIVE DISCUSSION ON SMOKING CESSASTION: Yes PREOPERATIVE DISCUSSION ON MORBID OBESITY: Yes PREOPERATIVE DISCUSSION ON APPROPRIATE USE OF NARCOTIC USE: Yes PREOPERATIVE EDUCATION: Multi Modal, Smoking Cessation and Weight Loss with BMI over 35. DISPOSITION: Stable to recovery room
[2023-04-21 12:05] VITALS: TEMP 98.4
[2023-04-21] MEDS: LACTATED RINGERS 1,000 ML IV ONE (12:12)
[2023-04-21 13:08] VITALS: PULSE 71
[2023-04-21] MEDS ORDERED: ACETAMINOPHEN TAB 325 MG TAB PO SCH (14:00)
[2023-04-21] MEDS ORDERED: IBUPROFEN 600 MG TAB PO SCH (15:00)
[2023-04-25 06:27] VITALS: BP 115/69; RESP 16
== END 2023-04-21 13:18 ==
LOC: OR 08:24
PROVIDERS: ATTEND Surgery
DX: K42.9 Umbilical hernia without obstruction or gangrene (principal); G89.18 Other acute postprocedural pain; Z90.49 Acquired absence of other specified parts of digestive tract; Z98.891 History of uterine scar from previous surgery; Z87.891 Personal history of nicotine dependence; Z83.3 Family history of diabetes mellitus; Z79.899 Other long term (current) drug therapy
CPT/HCPCS: 81025; 64488; 85025; 49591; C1781; J2250; J0330; J1644; J1100; J2710; J0690; J2405; J2001; J3010; J1170 ×2; J2795; J1885; J2704; J0665; 88302

== ENCOUNTER → 2024-06-12 | Outpatient (CLI) | payer OTHER | END | disposition home or self-care (01) | LOC: LABWHC1 14:07 | PROVIDERS: ATTEND Obstetrics & Gynecology | DX: N91.2 Amenorrhea, unspecified (principal) | CPT/HCPCS: 36415; 84702 ==

== ENCOUNTER 2024-08-28 03:41 | Emergency (ER) | payer OTHER ==
[2024-08-28] MEDS: LACTATED RINGERS 1,000 ML IV ONE (04:39)
[2024-08-28 04:40] LABS: Basophils # (A) 0.03 10*3/uL (0.00-0.10); Basophils % (A) 0.4 %; Eosinophils # (A) 0.13 10*3/uL (0.04-0.35); Eosinophils % (A) 1.5 %; HCT 40.8 % (37.2-46.3); HGB 13.6 g/dL (12.0-15.0); Lymphocytes # (A) 3.78 10*3/uL (0.90-5.00); Lymphocytes % (A) 44.8 %; MCH 27.4 pg (27.0-32.0); MCHC 33.3 g/dL (32.0-37.0); MCV 82.1 fL (80.0-97.0); Monocytes # (A) 0.40 10*3/uL (0.20-1.00); Monocytes % (A) 4.7 %; Neutrophils # (A) 4.08 10*3/uL (1.80-7.70); Neutrophils % (A) 48.4 %; Platelet Count 278 10*3/uL (140-440); RBC 4.97 10*6/uL (4.10-5.20); RDW 12.8 % (11.5-14.5); WBC 8.44 10*3/uL (4.50-10.00)
[2024-08-28] MEDS: KETOROLAC 15 MG/ML 1 ML VIAL IVP STA (04:47)
--- NOTE | 2024-08-28 04:47 | ED ---
General Adult HPI - General Chief complaint: Abdominal Pain Stated complaint: Left ovarian pain, back pain Time Seen by Provider: 08/28/24 04:04 Source: patient Mode of arrival: ambulatory Limitations: no limitations - History of Present Illness Initial comments: Patient is a 33 patient is a 33-year-old female, previously healthy presenting today for sudden onset left lower quadrant pain. Patient states that she went to use the bathroom this evening when she began having sharp left lower quadrant pain around 1 AM. She took 800 mg ibuprofen without improvement. Pain radiates to the left low back. She endorses vaginal spotting, unsure of hematuria. Denies urinary frequency or dysuria. Denies fevers or chills. Does endorse nausea had 4 episodes of nonbloody nonbilious emesis. Denies chest pain or shortness of breath. Denies melena, hematochezia, diarrhea or constipation. Prior abdominal surgeries include a prior cholecystectomy and . States she is on the Depo shot and is due for her next shot this month. Does not believe she could be . Denies numbness or weakness. - Related Data Home Medications Medication Instructions Recorded Confirmed Acetaminophen Tab [Tylenol] 650 mg PO Q4H PRN 01/16/22 04/21/23 Previous Rx's Medication Instructions Recorded oxyCODONE HCL [OxyIR] 5 mg PO Q6H PRN 3 Days #6 tab 04/21/23 Ketorolac [Toradol] 10 mg PO Q12HR 7 Days #14 tab 08/28/24 Tamsulosin [Flomax] 0.4 mg PO DAILY 5 Days #5 cap 08/28/24 Allergies Allergy/AdvReac Type Severity Reaction Status Date / Time No Known Allergies Allergy Verified 08/28/24 03:42 Review of Systems ROS Statement: Those systems with pertinent positive or pertinent negative responses have been documented in the HPI. ROS Other: All systems not noted in ROS Statement are negative. Past Medical History Past Medical History: No Reported History Additional Past Medical History / Comment(s): bronchitis as a child. History of Any Multi-Drug Resistant Organisms: None Reported Past Surgical History: Section, Cholecystectomy Additional Past Surgical History / Comment(s): D&C Past Anesthesia/Blood Transfusion Reactions: No Reported Reaction Past Psychological History: No Psychological Hx Reported Smoking Status: Vaper Past Alcohol Use History: None Reported Past Drug Use History: None Reported - Past Family History Mother Family Medical History: Asthma, Diabetes Mellitus Father History Unknown: Yes Family Medical History: No Reported History General Exam - General Exam Comments Initial Comments: PE: CONSTITUTIONAL: In mild distress 2/2 pain, overall well-appearing, uncomfortable appearing SKIN: Warm, dry, no jaundice, hives or petechiae EYES: Pupils are equally round, extraocular movements intact without nystagmus, clear conjunctiva, non-icteric sclera HENT: Normocephalic, atraumatic, moist mucus membranes, oropharynx clear without exudates NECK: , Full range of motion, normal appearance PULMONARY: Clear to auscultation without wheezes, rhonchi, or rales, normal excursion, no accessory muscle use and no stridor CARDIOVASCULAR: Regular rate, rhythm, normal S1 and S2. No appreciated murmurs, rubs or gallops. Strong radial pulses with intact distal perfusion. No lower extremity edema GASTROINTESTINAL: Soft, active bowel sounds throughout, tenderness palpation of left lower quadrant non-distended, no palpable masses, guarding palpation of the left lower quadrant. No hepatosplenomegaly GENITOURINARY: MUSCULOSKELETAL: Extremities have no gross deformity, no edema, redness, or swelling. NEUROLOGIC:_a/o x 3, GCS 15, normal mentation and speech. Moves all extremities x 4 without motor or sensory deficit PSYCHIATRIC:_normal mood and affect, thought process is clear and linear Limitations: no limitations Course Vital Signs 08/28/24 03:42 Temperature 97.8 F Pulse Rate 88 Respiratory 24 Rate Blood Pressure 149/90 O2 Sat by Pulse 99 Oximetry Medical Decision Making - Medical Decision Making Was pt. sent in by a medical professional or institution (, PA, TELEPHOTO ENGINEER, urgent care, hospital, or correction...) When possible be specific @ -No Did you speak to anyone other than the patient for history (EMS, parent, family, police, friend...)? What history was obtained from this source @ -No Did you review nursing and triage notes (agree or disagree)? Why? @ -I reviewed nursing and triage notes- agree with triage note Differential Diagnosis (chest pain, altered mental status, abdominal pain women, abdominal pain men, vaginal bleeding, weakness, fever, dyspnea, syncope, headache, dizziness, GI bleed, back pain, seizure, CVA, palpatations, mental health, musculoskeletal)? @Differential Abdominal Pain Women: Appendicitis, Cholecystitis, diverticulosis, ischemic bowel, pancreatitis, hepatitis, UTI, gastroenteritis, AAA, incarcerated hernia, bowel obstruction, constipation, inflammatory bowel, hepatitis, peptic ulcer disease, splenic i nfarction, perforated viscus, vulvitis, ovarian torsion, PID, kidney stone, placenta abruption, this is not meant to be an all-inclusive list EKG interpreted by me (3pts min.). @ -As above X-rays interpreted by me (1pt min.). @ -None done CT interpreted by me (1pt min.). @Personally reviewed CT abdomen pelvis, noted 5 mm ureterolithiasis at the left UVJ no surrounding fat stranding U/S interpreted by me (1pt. min.). @ -None done What testing was considered but not performed or refused? (CT, X-rays, U/S, labs)? Why? @ -Ultrasound of the pelvis was considered to evaluate for ovarian torsion how ever patient's pain resolved after pain medication administration, lactic was within normal limits, CT demonstrated a kidney stone at the left UVJ which would explain patient's pain she is currently comfortable What meds were considered but not given or refused? Why? @ -None Did you discuss the management of the patient with other professionals (professionals i.e. , PA, TELEPHOTO ENGINEER, lab, RT, psych nurse, rn social work, architectural superintendent, teacher, special technical operations officer, caseworker)? Give summary @ -No Was smoking cessation discussed for >3mins.? @ -No Was critical care preformed (if so, how long)? @ -No Were there social determinants of health that impacted care today? How? (Homelessness, low income, unemployed, alcoholism, drug addiction, transportation, low edu. Level, literacy, decrease access to med. care, fdc, rehab)? @ -No Was there de-escalation of care discussed even if they declined (Discuss DNR or withdrawal of care, Hospice)? @ -No What co-morbidities impacted this encounter? (DM, HTN, Smoking, COPD, CAD, Cancer, CVA, ARF, Chemo, Hep., AIDS, mental health diagnosis, sleep apnea, morbid obesity)? @ -None Was patient admitted / discharged? Hospital course, mention meds given and route, prescriptions, significant lab abnormalities, going to OR and other pertinent info. Discharged- this is a pleasant 33-year-old female presenting today for 1 evening of sharp intermittent left lower quadrant abdominal pain. On my assessment patient is uncomfortable appearing though [id number], nontoxic. Tenderness to palpation of left lower quadrant with guarding. Differential diagnoses above, top considerations include torsion versus ureterolithiasis. CBC, CMP, lipase, lactate, urinalysis CT Abdo pelvis ordered. Will add ultrasound of the pelvis if CT does not reveal etiology of pain or patient continues to have worsening or severe pain or significant lab abnormalities such as unexplained lactic acidosis. Pain control and IV fluids ordered. Patient agreeable w/ plan of care. CT abdomen pelvis ultimately showed 5 mm stone at the left UVJ.CBC shows no leukocytosis, sodium 134, total bili 1.4, AST 52, lactic 1.0, hCG undetectable. Urinalysis showed 1+ protein, large blood, negative nitrates, trace excite esterase greater than 182 red cells, 1 squamous cells moderate yeast, no ba cteria, suspect leukocyte esterase secondary to red and white blood cells. Patient denies any UTI type symptoms and is afebrile so will not treat at this point. Patient denies any symptoms of a yeast infection either. Updated patient on findings. Her pain is controlled. Discussed with patient plan for discharge,toradol, flomax. Discussed with patient the importance of following up with urology, straining her urine as well as signs and symptoms to monitor for warranting return to the ER such as UTI symptom or fevers. In my medical judgment there is currently no evidence of an immediate life- threatening or surgical condition. Discharge is therefore indicated at this time. Discharge treatment instructions, follow up instructions, and appropriate emergency department return precautions were discussed with the patient and/or medical decision maker. Patient and/or medical decision maker expressed understanding of and agreed with the treatment plan, follow up instructions, and emergency department return precaution. All patient's and/or medical decision maker's questions were answered. The patient was instructed to return to the ED for any changes in symptoms, persistent symptoms, inability to obtain proper follow-up or for any further concerns. Patient received verbal and written instructions for this condition. Undiagnosed new problem with uncertain prognosis? @ -No Drug Therapy requiring intensive monitoring for toxicity (Heparin, Nitro, Insulin, Cardizem)? @ -No Were any procedures done? @ -No Diagnosis/symptom? @Ureterolithiasis Acute, or Chronic, or Acute on Chronic? @Acute Uncomplicated (without systemic symptoms) or Complicated (systemic symptoms)? Complicated Side effects of treatment? @ -No Exacerbation, Progression, or Severe Exacerbation? @ -No Poses a threat to life or bodily function? How? (Chest pain, [place], [place], pneumonia, PE, COPD, DKA, ARF, appy, cholecystitis, CVA, Diverticulitis, Homicidal, Suicidal, threat to staff... and all critical care pts) @ -No - Lab Data Result diagrams: 08/28/24 04:31 08/28/24 04:31 Lab Results 08/28/24 08/28/24 08/28/24 Range/Units 04:31 04:31 04:31 WBC 8.44 (4.50-10.00) 10*3/uL RBC 4.97 (4.10-5.20) 10*6/uL Hgb 13.6 (12.0-15.0) g/dL Hct 40.8 (37.2-46.3) % MCV 82.1 (80.0-97.0) fL MCH 27.4 (27.0-32.0) pg MCHC 33.3 (32.0-37.0) g/dL Plt Count 278 (140-440) 10*3/uL MPV 10.9 (9.5-12.2) fL Immature Gran % (Auto) 0.2 % Neutrophils % 48.4 % Lymphocytes % 44.8 % Monocytes % 4.7 % Eosinophils % 1.5 % Basophils % 0.4 % Immature Gran # 0.02 (0.00-0.04) 10*3/uL Neutrophils # 4.08 (1.80-7.70) 10*3/uL Lymphocytes # 3.78 (0.90-5.00) 10*3/uL Monocytes # 0.40 (0.20-1.00) 10*3/uL Eosinophils # 0.13 (0.04-0.35) 10*3/uL Basophils # 0.03 (0.00-0.10) 10*3/uL PT 11.3 (10.0-12.5) sec INR 1.0 (<1.2) APTT 22.6 (22.0-30.0) sec Sodium 134 L (137-145) mmol/L Potassium 4.7 (3.5-5.1) mmol/L Chloride 105 (98-107) mmol/L Carbon Dioxide 18 L (22-30) mmol/L Anion Gap 11 mmol/L BUN 22 H (7-17) mg/dL Creatinine 0.66 (0.52-1.04) mg/dL Est GFR (CKD-EPI)AfAm >90 (>60 ml/min/1.73 sqM) Est GFR (CKD-EPI)NonAf >90 (>60 ml/min/1.73 sqM) Glucose 83 (74-99) mg/dL Plasma Lactic Acid Paul (0.7-2.0) mmol/L Calcium 10.2 (8.4-10.2) mg/dL Total Bilirubin 1.4 H (0.2-1.3) mg/dL AST 52 H (14-36) U/L ALT 29 (4-34) U/L Alkaline Phosphatase 51 (38-126) U/L Total Protein 8.1 (6.3-8.2) g/dL Albumin 4.7 (3.5-5.0) g/dL Lipase 167 (23-300) U/L HCG, Quant <2.4 mIU/mL Urine Color Urine Appearance (Clear) Urine pH (5.0-8.0) Ur Specific [place] (1.001-1.035) Urine Protein (Negative) Urine Glucose (UA) (Negative) Urine Ketones (Negative) Urine Blood (Negative) Urine Nitrite (Negative) Urine Bilirubin (Negative) Urine Urobilinogen (<2.0) mg/dL Ur Leukocyte Esterase (Negative) Urine RBC (0-5) /hpf Urine WBC (0-5) /hpf Ur Squamous Epith Cells (0-4) /hpf Urine Mucus (None) /hpf Urine Yeast (Budding) (None) /hpf 08/28/24 08/28/24 Range/Units 04:31 04:44 WBC (4.50-10.00) 10*3/uL RBC (4.10-5.20) 10*6/uL Hgb (12.0-15.0) g/dL Hct (37.2-46.3) % MCV (80.0-97.0) fL MCH (27.0-32.0) pg MCHC (32.0-37.0) g/dL Plt Count (140-440) 10*3/uL MPV (9.5-12.2) fL Immature Gran % (Auto) % Neutrophils % % Lymphocytes % % Monocytes % % Eosinophils % % Basophils % % Immature Gran # (0.00-0.04) 10*3/uL Neutrophils # (1.80-7.70) 10*3/uL Lymphocytes # (0.90-5.00) 10*3/uL Monocytes # (0.20-1.00) 10*3/uL Eosinophils # (0.04-0.35) 10*3/uL Basophils # (0.00-0.10) 10*3/uL PT (10.0-12.5) sec INR (<1.2) APTT (22.0-30.0) sec Sodium (137-145) mmol/L Potassium (3.5-5.1) mmol/L Chloride (98-107) mmol/L Carbon Dioxide (22-30) mmol/L Anion Gap mmol/L BUN (7-17) mg/dL Creatinine (0.52-1.04) mg/dL Est GFR (CKD-EPI)AfAm (>60 ml/min/1.73 sqM) Est GFR (CKD-EPI)NonAf (>60 ml/min/1.73 sqM) Glucose (74-99) mg/dL Plasma Lactic Acid Paul 1.0 (0.7-2.0) mmol/L Calcium (8.4-10.2) mg/dL Total Bilirubin (0.2-1.3) mg/dL AST (14-36) U/L ALT (4-34) U/L Alkaline Phosphatase (38-126) U/L Total Protein (6.3-8.2) g/dL Albumin (3.5-5.0) g/dL Lipase (23-300) U/L HCG, Quant mIU/mL Urine Color Light Red Urine Appearance Cloudy H (Clear) Urine pH 6.0 (5.0-8.0) Ur Specific [place] 1.028 (1.001-1.035) Urine Protein 1+ H (Negative) Urine Glucose (UA) Negative (Negative) Urine Ketones Negative (Negative) Urine Blood Large H (Negative) Urine Nitrite Negative (Negative) Urine Bilirubin Negative (Negative) Urine Urobilinogen <2.0 (<2.0) mg/dL Ur Leukocyte Esterase Trace H (Negative) Urine RBC >182 H (0-5) /hpf Urine WBC 17 H (0-5) /hpf Ur Squamous Epith Cells 1 (0-4) /hpf Urine Mucus Many H (None) /hpf Urine Yeast (Budding) Moderate H (None) /hpf Disposition Clinical Impression: Ureterolithiasis Disposition: HOME SELF-CARE Condition: Good Instructions (If sedation given, give patient instructions): Kidney Stones (ED) Additional Instructions: Every disease is a spectrum and a small chance still exists that a serious condition could develop, for this reason, please monitor yourself closely for new, changing or worsening symptoms, symptoms that do not continue to improve over the next 48 hours, UTI type symptoms such as peeing more frequently than normal, burning with urination, fever, inability to tolerate/keep down fluids or your medications, inability to follow up with outpatient providers as instructed and should you experience these symptoms or should you have any further concerns for your wellbeing please return to the ED or call 911 immediately. Please drink plenty of fluids. Please strain your urine until your symptoms have resolved completely or you passed your kidney stone. Your pain can be treated with ibuprofen and acetaminophen. You can take up to 400-600 mg of ibuprofen (Advil, Motrin) 3 times daily (every 8 hours) but can also use lower doses if this relieves your pain. Some people prefer naproxen (Aleve, Naprosyn) which can be taken in doses of 500 mg up to twice a day. Do not take both of these medicines together, and do not combine either with ketorolac (Toradol), meloxicam (Mobic), or indomethacin (Tivorbex). Some people can develop stomach discomfort with higher doses of either ibuprofen or naproxen, if this develops decrease your dose or stop taking it. If you need to take this dose daily for more than a week, please schedule an appointment for re-evaluation with your PCP. Please take these medications with food. You can take up to 1000 mg of acetaminophen (Tylenol) every 6 hours. Be careful as this is included in some medicines like Nyquil, [place], Percocet, Vicodin, STANBACK, Goody's Powders, and Excedrin. You can also use lidocaine patches for topical pain. You can purchase 4% patches over the counter at most drug stores. These can be helpful for pain from your muscles or bones. PLEASE call your primary care physician as soon as possible to arrange / discuss plan for followup appointment. Appointment in the next 1-3 days is strongly encouraged if possible. PLEASE let us know here before you leave if there is anything further we can do to be of any assistance. Take care and feel Better! Prescriptions: Tamsulosin [Flomax] 0.4 mg PO DAILY 5 Days #5 cap Ketorolac [Toradol] 10 mg PO Q12HR 7 Days #14 tab Is patient prescribed a controlled substance at d/c from ED?: No Referrals: Sierra Kaplan MD [Primary Care Provider] - 1-2 days
[2024-08-28] MEDS: ONDANSETRON 4 MG/2 ML VIAL IVP STA (04:50)
[2024-08-28] MEDS: HYDROmorphone 1 MG/ML 1 ML SYRINGE IVP STA (04:51)
[2024-08-28 05:04] LABS: INR 1.0 (<1.2); Partial Thromboplastin Time 22.6 sec (22.0-30.0); Prothrombin Time 11.3 sec (10.0-12.5)
[2024-08-28 05:11] LABS: ALT 29 U/L (4-34); AST 52 U/L (14-36); African American GFR (CKD) >90 (>60 ml/min/1.73 sqM); Albumin 4.7 g/dL (3.5-5.0); Alkaline Phosphatase 51 U/L (38-126); Anion Gap 11 mmol/L; Blood Urea Nitrogen 22 mg/dL (7-17); Calcium 10.2 mg/dL (8.4-10.2); Carbon Dioxide 18 mmol/L (22-30); Chloride 105 mmol/L (98-107); Glucose 83 mg/dL (74-99); Lipase 167 U/L (23-300); Non-African American GFR(CKD) >90 (>60 ml/min/1.73 sqM); Potassium 4.7 mmol/L (3.5-5.1); Sodium 134 mmol/L (137-145); Total Protein 8.1 g/dL (6.3-8.2)
[2024-08-28 05:15] LABS: Bilirubin,Urine Negative (Negative); Blood,Urine Large (Negative); Budding Yeast,Urine Moderate /hpf; Color,Urine Light Red; Glucose,Urine (UA) Negative (Negative); Ketones,Urine Negative (Negative); Leukocyte Esterase,Urine Trace (Negative); Mucus,Urine Many /hpf; Nitrite,Urine Negative (Negative); PH, Urine 6.0 (5.0-8.0); Protein,Urine 1+ (Negative); RBC,Urine >182 /hpf (0-5); Specific Gravity,Urine 1.028 (1.001-1.035); Squamous Epithelial Cell,Urine 1 /hpf (0-4); Urobilinogen,Urine <2.0 mg/dL (<2.0); WBC,Urine 17 /hpf (0-5)
[2024-08-28 05:27] LABS: HCG,Quantitative Serum <2.4 mIU/mL
--- NOTE | 2024-08-28 05:54 | CT ---
EXAM: CT Abdomen and Pelvis Without Intravenous Contrast CLINICAL HISTORY: LLQ/left flank pain TECHNIQUE: Axial computed tomography images of the abdomen and pelvis without intravenous contrast. Coronal and sagittal reconstructions are performed. CTDI is 8.6 mGy and DLP is 483.3 mGy-cm. This CT exam was performed using one or more of the following dose reduction techniques: automated exposure control, adjustment of the mA and/or kV according to patient size, and/or use of iterative reconstruction technique. 444 images COMPARISON: No relevant prior studies available. FINDINGS: Lung bases: Unremarkable. No mass. No consolidation. ABDOMEN: Liver: Unremarkable. Gallbladder and bile ducts: No acute findings. Pancreas: Unremarkable. No ductal dilation. Spleen: Unremarkable. No splenomegaly. Adrenals: Unremarkable. No mass. Kidneys and ureters: 2 mm nonobstructing lower pole left renal stone. 2 x 5 mm left vesicoureteral junction stone on series 202, image 52, without significant hydroureter or hydronephrosis. Stomach and bowel: Mild circumferential wall thickening of loops of jejunum in the left mid abdomen is likely due to underdistention. PELVIS: Appendix: Normal. Bladder: Unremarkable. No stones. Reproductive: No acute findings. ABDOMEN and PELVIS: Intraperitoneal space: Unremarkable. No free air. No significant fluid collection. Bones/joints: No acute findings. Soft tissues: Unremarkable. Vasculature: Unremarkable. No abdominal aortic aneurysm. Lymph nodes: Unremarkable. No enlarged lymph nodes. IMPRESSION: 2 x 5 mm left vesicoureteral junction stone without significant hydroureter or hydronephrosis. 2 mm nonobstructing lower pole left renal stone
[2024-08-28 06:35] VITALS: BP 136/89; PULSE 68; RESP 17; TEMP 98.1
== END 2024-08-28 06:35 | disposition home or self-care (01) ==
LOC: EC 03:41
DX: N20.2 Calculus of kidney with calculus of ureter (principal); F17.290 Nicotine dependence, other tobacco product, uncomplicated
CPT/HCPCS: 36415; 80053; 83605; 83690; 85025; 85610; 85730; 81001; 84702; 87086; 74176; 99284; 96374; 96375 ×2; 96361; J2405; J1171; J1885